=== PATIENT | male | born 1945 | race Caucasian/White ===

== ENCOUNTER 2023-01-17 19:20 | Inpatient (IN) | payer OTHER ==
[~2023-01-17] VITALS: Ht 175.3 cm; Wt 77.6 kg
--- NOTE | 2023-01-17 19:25 | NUR ---
Patient to ER bed 07 to gown for evaluation. Side rails up. Report given to FARIDEH PALMA.
--- NOTE | 2023-01-17 19:28 | NUR ---
DR. NIETO AT BEDSIDE WITH PATIENT FOR MSE.
[2023-01-17] MEDS ORDERED: RACEPINEPHRINE HCL 0.5 ML VIAL.NEB INH ONE ×2 (19:35→19:45)
--- NOTE | 2023-01-17 20:04 | NUR ---
ASSUMED CARE OF PATIENT
[2023-01-17 20:06] LABS: BASOPHILS # (AUTO) 0.1 K/uL (0.0-0.2); BASOPHILS % (AUTO) 1.1 % (0.0-2.0); EOSINOPHILS # (AUTO) 0.5 K/uL (0.0-0.4); EOSINOPHILS % (AUTO) 4.8 % (0.0-4.0); HEMATOCRIT 35.3 % (36-54); HEMOGLOBIN 11.7 g/dL (14.0-18.0); LYMPHOCYTES # (AUTO) 1.5 K/uL (1.0-5.5); LYMPHOCYTES % (AUTO) 14.8 % (20.5-51.5); MEAN CORPUSCULAR HEMOGLOBIN 29 pg (27-31); MEAN CORPUSCULAR HGB CONC 33 % (32-36); MEAN CORPUSCULAR VOLUME 89 fL (79.0-98.0); MONOCYTES # (AUTO) 1.2 K/uL (0.0-1.0); MONOCYTES % (AUTO) 12.4 % (1.7-9.3); NEUTROPHILS # (AUTO) 6.7 K/uL (1.8-7.7); NEUTROPHILS % (AUTO) 66.9 % (40.0-70.0); PLATELET COUNT (AUTO) 342 K/uL (130-430); RED BLOOD CELL COUNT(AUTO) 3.99 MIL/uL (4.2-6.2); RED CELL DISTRIBUTION WIDTH 14.1 % (9.0-15.0)
--- NOTE | 2023-01-17 20:30 | NUR ---
patient came in with c/o difficulty breathing. patient stated he had a biopsy of a mass in his throat 2 weeks ago. possible large mass obstructing airway. stridor noted. patient sating at 90 on room air. denies chest pain, headache, n/v/d. cap refill >3.
[2023-01-17 20:36] LABS: PROTHROMBIN TIME 10.3 SECS (9.5-12.5)
[2023-01-17 20:42] LABS: ANION GAP 6 (5-15); CHLORIDE 99 mmol/L (98-107); GLUCOSE 90 mg/dL (70-99); UREA NITROGEN, BLOOD 20 mg/dL (8-21)
[2023-01-17 20:49] LABS: ALANINE AMINOTRANSFERASE 15 U/L (12-78); ALBUMIN 3.2 g/dL (3.4-4.8); ASPARTATE AMINOTRANSFERASE 12 U/L (10-37); TOTAL BILIRUBIN 0.4 mg/dL (0.0-1.0)
[2023-01-17] MEDS ORDERED: IPRATROPIUM BROM 0.5 MG/2.5 ML VIAL.NEB (ATROVENT) INH ONE (21:15)
[2023-01-17] MEDS ORDERED: ALBUTEROL SULFATE 0.083% 2.5 MG/3 ML VIAL.NEB INH ONE (21:15)
--- NOTE | 2023-01-17 21:23 | NUR ---
COVID AND FLU SAMPLE COLLECTED AND SENT TO LAB
--- NOTE | 2023-01-17 21:44 | NUR ---
Medication reconciliation completed with information provided by pt at the bedside. Any prior medication reconciliation on file was reviewed and corrected.
[2023-01-17] MEDS ORDERED: LISI-209 PO (21:45)
[2023-01-17] MEDS ORDERED: CARV3.1246 PO (21:45)
[2023-01-17] MEDS ORDERED: ASA81 PO (21:45)
[2023-01-17] MEDS ORDERED: ASPI-1077 PO (21:45)
[2023-01-17] MEDS ORDERED: [UNRECOGNIZED DRUG - CODE] PO (21:45)
[2023-01-17] MEDS ORDERED: FURO-149 PO (21:45)
[2023-01-17] MEDS ORDERED: CYAN100010 PO (21:45)
[2023-01-17] MEDS ORDERED: VITD2000 PO (21:45)
--- NOTE | 2023-01-17 21:45 | NUR ---
Admit bed requested Patient will be admitted to care of . Admitted to TELE unit. Diagnosis STRIDOR,ESOPHAGEAL CANCER Inpatient (Yes or No) YES Observation (Yes or No) NO Orientation concerns or request close to nursing station (Yes or No) NO Covid Status PENDING On vent or bipap NO Isolation requirements NO Needs a sitter NO From Home (Yes or if No enter name of facility) YES Requires Dialysis (Yes or No) NO Med Rec Completed (Yes of No) YES
--- NOTE | 2023-01-17 23:13 | NUR ---
endorsed patient to [facility] por[facility]
--- NOTE | 2023-01-17 23:15 | NUR ---
Received report from outgoing nurse FARIDEH Saez. Received pt awake and alert, no s/s of discomfort noted. Pt on 2L O2 via N/C sating at 96%. Labored breathing noted. Safety measures in place.
--- NOTE | 2023-01-17 23:55 | NUR ---
ADMISSION NOTE Received patient from ER via gurney. Patient admitted with diagnosis of STRIDOR/ESPOHAGEAL CA. Patient is awake, alert, oriented X 4. Patient oriented to hospital room, call light, toileting, pain management and safety-teach back done. Patient informed that their room number is 125A. Personal belongings checked and Belongings List documented. Call light within reach.
[2023-01-18] VITALS (23 sets, daily range): BP systolic 110–161
--- NOTE | 2023-01-18 00:09 | NUR ---
Patient will be admitted to care of Dr Siu. Admitted to Tele unit. Will go to room 125A. Belongings list completed. Complete and up to date summary report printed. SBAR report to be given at bedside with opportunity for questions.
--- NOTE | 2023-01-18 00:22 | NUR ---
PAGED DR COFFEY for orders, waiting callback
--- NOTE | 2023-01-18 00:47 | NUR ---
CONSULTATION PAGED/CALLED Reason for Consultation: SOB Person Who was Notified: DR RAND Consulting Physician: JAQUELINE College Recruiter Specialty: Ordering Physician: ALEXX
--- NOTE | 2023-01-18 01:07 | NUR ---
SPOKE W/ DR KIRKPATRICK pt c/o SOB, noted increased WOB. Placed on 15L NRB with minimal improvement. RT at bedside. Informed Dr Kirkpatrick, new orders received to transfer pt to ICU. Pt is a/o x4 and verbalized he does not want to be intubated. Son at bedside is aware but wants pt to be full code. As of right now, pt is still considered full code until code status documentation is signed Addendum: 01/18/23 at 0227 by Traci Lima RN Also asked Dr Kirkpatrick if he wanted to order an ABG due to increased WOB, refused and stated "what is that going to tell us?"
[2023-01-18] MEDS ORDERED: guaiFENesin 200 MG/CODEINE 20 MG/ 10 ML UDC PO PRN (01:15)
--- NOTE | 2023-01-18 01:35 | NUR ---
TRANSFER PT TRANSFERRED FROM [facility] AT THIS TIME. PT RECEIVED ON COOL AEROSOL MASK 15L/60%,BREATHING IS LABORED. PT AAOX3-4 ABLE TO FOLLOW AND RESPOND TO VERBAL CUES. PT PLACED ON HFNC BY RT AT THIS TIME, 35L/ 50%. WOB HAS DECREASED ON HFNC AND PT STATING HE FEELS MORE COMFORTABLE. PT SR ON MONITOR. NAHUM 22G TO SL, PATENT AND INTACT. PT DENIES ANY PAIN OR DISCOMFORT AT THIS TIME. HOB ELEVATED, BED LOCKED IN LOWEST POSITION, CALL LIGHT IN REACH. WILL CONTINUE TO MONITOR. PT IS AAO AND ABLE TO VERBALIZE NEEDS. PER PT HE DOES NOT WANT TO BE INTUBATED, CHEST COMPRESSIONS, MEDICATIONS, AND BIPAP ARE ACCEPTABLE.
[2023-01-18] MEDS: RACEPINEPHRINE HCL 0.5 ML VIAL.NEB INH SCH ×2 (01:53→07:19)
--- NOTE | 2023-01-18 01:54 | NUR ---
TRANSFER TO ICU Report given to FARIDEH Estes. All belongings sent with pt
--- NOTE | 2023-01-18 03:23 | NUR ---
CONSULTATION PAGED/CALLED Reason for Consultation: esophageal cancer Person Who was Notified: betty Consulting Physician: alysa Bioinformatics Developer Specialty: GI Ordering Physician: rodolfo
--- NOTE | 2023-01-18 03:45 | NUR ---
FAMILY AT BEDSIDE PTS SON GERDA AT BEDSIDE. ALL BELONGINGS SENT HOME WITH FAMILY.
[2023-01-18] MEDS ORDERED: GLIP5TAB26 PO (03:51)
--- NOTE | 2023-01-18 05:00 | NUR ---
HYGIENE PTS LINENS CHANGED AT THIS TIME, PT INDEPENDENT AND ABLE TO TURN ON HIS OWN. PT TOLERATING ACTIVITY WELL. WILL CONTINUE TO MONITOR.
[2023-01-18 05:57] LABS: BASOPHILS # (AUTO) 0.1 K/uL (0.0-0.2); BASOPHILS % (AUTO) 0.8 % (0.0-2.0); EOSINOPHILS # (AUTO) 0.2 K/uL (0.0-0.4); EOSINOPHILS % (AUTO) 1.9 % (0.0-4.0); HEMATOCRIT 37.7 % (36-54); HEMOGLOBIN 12.5 g/dL (14.0-18.0); LYMPHOCYTES # (AUTO) 0.9 K/uL (1.0-5.5); LYMPHOCYTES % (AUTO) 9.5 % (20.5-51.5); MEAN CORPUSCULAR HEMOGLOBIN 29 pg (27-31); MEAN CORPUSCULAR HGB CONC 33 % (32-36); MEAN CORPUSCULAR VOLUME 89 fL (79.0-98.0); MONOCYTES # (AUTO) 0.7 K/uL (0.0-1.0); MONOCYTES % (AUTO) 7.8 % (1.7-9.3); NEUTROPHILS # (AUTO) 7.6 K/uL (1.8-7.7); PLATELET COUNT (AUTO) 337 K/uL (130-430); RED BLOOD CELL COUNT(AUTO) 4.24 MIL/uL (4.2-6.2); RED CELL DISTRIBUTION WIDTH 14.2 % (9.0-15.0); WHITE BLOOD COUNT (AUTO) 9.5 K/uL (4.8-10.8)
[2023-01-18 06:43] LABS: ALANINE AMINOTRANSFERASE 13 U/L (12-78); ALBUMIN 3.1 g/dL (3.4-4.8); ANION GAP 7 (5-15); ASPARTATE AMINOTRANSFERASE 12 U/L (10-37); CALCIUM 9.3 mg/dL (8.4-11.0); CHLORIDE 102 mmol/L (98-107); GLUCOSE 146 mg/dL (70-99); TOTAL BILIRUBIN 0.4 mg/dL (0.0-1.0); UREA NITROGEN, BLOOD 18 mg/dL (8-21)
--- NOTE | 2023-01-18 07:31 | NUR ---
DR. COFFEY SPOKE WITH DR. COFFEY AND MADE MD AWARE THAT PT DOES NOT WANT INTUBATION. PT CODE STATUS UPDATED TO MOD CODE PER MD. OTHER ORDERS RECEIVED. WILL CARRY OUT ORDERED.
--- NOTE | 2023-01-18 07:33 | NUR ---
ENDORSEMENT BEDSIDE REPORT GIVEN TO CIRO GONG USING SBAR APPROACH.
--- NOTE | 2023-01-18 07:43 | NUR ---
DR ISBELL HERE AND TALKED TO PT. SPOKE WITH PT, MD SEEING PT ALSO OUTPT. VERIFIED WITH PT THAT PT DOES NOT WANT G-TUBE. REMINDED PT THAT HIS CANCER MD WILL NO DO CHEMO TREATMENT UNLESS HE GETS PROPER NUTRITION THRU G-TUBE. SAID PT WILL TALK TO FAMILY RE G-TUBE AND IF THEY ARE OK WITH IT THEY CAN DO IT THIS WEEK WHEN BREATHING IS BETTER.
[2023-01-18] MEDS ORDERED: MORPHINE 2 MG/ML INJ. SYRINGE IVP PRN (07:45)
--- NOTE | 2023-01-18 07:51 | NUR ---
DR RAND HERE AND SEEN PT. SPOKE WITH PT.
[2023-01-18] MEDS ORDERED: METHYLPREDNISOLONE SOD SUCC 40 MG/ML VIAL IVP ONE (08:45)
[2023-01-18] MEDS ORDERED: RACEPINEPHRINE HCL 0.5 ML VIAL.NEB INH PRN ×2 (09:15→12:45)
[2023-01-18] MEDS: cefTRIAXone 1 GM in D5W 50 ML IV SCH (09:40)
[2023-01-18] MEDS: CARVEDILOL 3.125 MG TABLET (COREG) PO SCH ×2 (09:43→20:09)
[2023-01-18] MEDS: lisinopriL 5 MG TABLET PO SCH (09:43)
--- NOTE | 2023-01-18 10:26 | NUR ---
DR LYNDA COULTER: SPOKE WITH PT. ALSO SPOKE WITH DR RAND AND DR ISBELL.
--- NOTE | 2023-01-18 11:00 | NUR ---
PT IS MORE RELAXED NOW RESPIRATORY DE [place]. PT IS NOW ON 40% FIO2 VIA HI-FLOW.
[2023-01-18] MEDS: IPRATROPIUM/ALBUTEROL SULFATE 3 ML AMPUL.NEB (DUONEB) INH SCH ×4 (11:39→23:38)
--- NOTE | 2023-01-18 12:00 | NUR ---
PT COMPLAIN THAT THE ENSURE PLUS HIGH PROTEIN MAKES HIM PRODUCE MORE PHLEGM. CALLED DIETARY TO CHECK IF THEY CAN PROVIDE OTHER SUPPLEMENTS WITH NO MILK.
--- NOTE | 2023-01-18 12:45 | NUR ---
Met with FARIDEH Art regarding the patient about a potential hosice eval in the ICU. per nurse, there was discussion of hospice by the GI as the patient is followed outpatient by his GI dr. and was refusing G-Tube placement. Now, the patient has become in agreement to possible G-Tube placement. At this time, the dr.s will discuss the best course of action and discuss with patient about his final decision. At this time, there is no follow up needed from addiction social worker.
--- NOTE | 2023-01-18 14:32 | NUR ---
DR STRANGE CONSULTATION CALLED IN: BY THIS RN REASON : ESOPHAGEAL CA SPOKE WITH : ADOLPH
--- NOTE | 2023-01-18 15:27 | NUR ---
PT IN BED RELAXED. FAMILY AT BEDSIDE. PT SAT WNL AT 35% FIO2 HI-FLOW.
--- NOTE | 2023-01-18 17:00 | NUR ---
PT CONTINUE TO HAVE COUGHING EPISODE WITH GREENISH/BROWNISH SPUTUM. PT'S O2 SAT WNL AT 35% FIO2 HI-FLOW.
--- NOTE | 2023-01-18 17:31 | NUR ---
PT'S FAMILY AT BEDSIDE.
--- NOTE | 2023-01-18 18:21 | NUR ---
PT IS FULL CODE: SPOKE WITH PT RE CODE STATUS, PT SAID OKAY TO DO EVERYTHING.
--- NOTE | 2023-01-18 19:00 | NUR ---
Opening notes Received report from endorsing morning shift RN for continuity of care. Patient is sitting in bed with legs dangling. Patient is AAOX4. Patient's vital signs blood pressure 114/68, heart rate 77, respirations 19, and SPO2 97% on high-flow nasal cannula 30L FIO2 35%. Patient uses urinal. Bed is locked and in lowest position, call light button within reach, fall and safety precautions is in place.
--- NOTE | 2023-01-18 19:07 | NUR ---
PT'S BEDSIDE TELEMONITOR NOT WORKING, INFORMED BALL SHAGGER CHUNG. PT ON STABLE CONDITION.
--- NOTE | 2023-01-18 19:13 | NUR ---
ENDORSED TO NIGHT RN. PT ON STABLE CONDITION.
[2023-01-18] MEDS: METHYLPREDNISOLONE SOD SUCC 40 MG/ML VIAL IVP SCH (20:08)
--- NOTE | 2023-01-18 20:29 | NUR ---
Insurance Christopher from [employer] called regarding patient transfering to a higher level of care. Christopher said to send latest progress note and discharge planning to them. Fax # [phone].
--- NOTE | 2023-01-18 21:00 | NUR ---
Transfer Transferred patient to . 101A. Gave report to Traci. Vital signs are all within limits. All belongings is given to the patient and placed at the bedside.
--- NOTE | 2023-01-18 21:40 | NUR ---
RECEIVED PATIENT IN BED, AWAKE, ALERT. ON HFNC 30 L/35% FIO2. HOAXING VOICE. VS TAKEN , NO DISTRESS. INITIAL ASSESSMENT DONE. FAMILY AT BEDSIDE AND VERY SUPPORTIVE. NO C/O PAIN AT THIS TIME. ORIENTED PATIENT TO UNIT. CALL LIGHT WITHIN REACH. INSTRUCTED PATIENT TO CALL FOR INSTALL TECHNICIAN.
[2023-01-19] VITALS: BP_SYST 118
[2023-01-19] MEDS: IPRATROPIUM/ALBUTEROL SULFATE 3 ML AMPUL.NEB (DUONEB) INH SCH ×6 (03:00→23:08)
--- NOTE | 2023-01-19 05:49 | NUR ---
PATIENT IS SLEEPING AT THIS TIME. TOLERATE HIGH FLOW AT THIS TIME. NO DISTRESS NOTED.
[2023-01-19] MEDS: METHYLPREDNISOLONE SOD SUCC 40 MG/ML VIAL IVP SCH ×2 (08:55→21:01)
[2023-01-19] MEDS: lisinopriL 5 MG TABLET PO SCH (08:56)
[2023-01-19] MEDS: cefTRIAXone 1 GM in D5W 50 ML IV SCH (08:57)
[2023-01-19] MEDS: CARVEDILOL 3.125 MG TABLET (COREG) PO SCH ×2 (08:57→20:57)
--- NOTE | 2023-01-19 11:15 | NUR ---
RT NOTE: 1115 Patient placed on 4LPM nasal cannula with humidifier. SpO2 100%, RR 20, HR 66. Tolerating change well. FARIDEH Chaudhary made aware of change. JENA on standby. Addendum: 01/19/23 at 1130 by Makenna Del Rio RT Amended: Links added.
[2023-01-19 11:23] VITALS: BP_SYST 130
[2023-01-19] MEDS: SIMETHICONE 80 MG TAB.CHEW PO PRN (12:50)
[2023-01-19 15:20] VITALS: BP_SYST 129
--- NOTE | 2023-01-19 15:27 | NUR ---
RT NOTE: 1527 Patient placed on HFNC post tx per patient's request. Tolerating well. No resp distress noted. Addendum: 01/19/23 at 1533 by Makenna Del Rio RT Amended: Links added.
--- NOTE | 2023-01-19 19:00 | NUR ---
pt A/Ox4,vss,resting in bed,on O2 Hi flow,no acute respiratory distress noted pt infomred and agreed for oncoming CT chest,abdomen and pelvis with contrast consent signed for contrast,needs attended,call light and personal items within pt reach safety maintained.continue to monitor pt.
[2023-01-19 22:30] VITALS: BP_SYST 152
[2023-01-19 22:44] VITALS: BP_SYST 152
[2023-01-20 02:02] VITALS: BP_SYST 147
[2023-01-20] MEDS: IPRATROPIUM/ALBUTEROL SULFATE 3 ML AMPUL.NEB (DUONEB) INH SCH ×6 (03:00→23:20)
--- NOTE | 2023-01-20 07:05 | NUR ---
CLOSING NOTES PT IS RESTING NOW.
[2023-01-20 07:35] VITALS: BP_SYST 131
--- NOTE | 2023-01-20 07:35 | NUR ---
Opening Notes Opening Notes Patient laying in bed, resting having a breathing treatment. A/O x 4, Albanian speaking. Patient is on HFNC 30L Fi02 . Patient is having pain level 8 (RN notified), no distress. Patient is on a full liquid diet. Patient has NAHUM 22g SL. Patient has BRP. Bed is locked in lowest position. Call light within reach, all needs met, will continue with plan of care.
[2023-01-20] MEDS: lisinopriL 5 MG TABLET PO SCH (08:15)
[2023-01-20] MEDS: CARVEDILOL 3.125 MG TABLET (COREG) PO SCH ×2 (08:18→21:08)
[2023-01-20] MEDS: METHYLPREDNISOLONE SOD SUCC 40 MG/ML VIAL IVP SCH ×2 (09:11→21:08)
[2023-01-20] MEDS: cefTRIAXone 1 GM in D5W 50 ML IV SCH (09:13)
--- NOTE | 2023-01-20 10:08 | NUR ---
MD HOWELL AT BEDSIDE at bedside and gave new medications orders. Orders carried out.
[2023-01-20 11:26] VITALS: BP_SYST 126
--- NOTE | 2023-01-20 12:30 | NUR ---
Noon Notes Patient laying in bed, resting while watching TV. Patient is on HFNC 30L Fi02 . No pain, no distress. Bed is locked in lowest position. Call light within reach, all needs met, will continue with plan of care.
[2023-01-20] MEDS ORDERED: COR3.125 PO (13:54)
[2023-01-20] MEDS ORDERED: METH40VI46 IVP (13:54)
[2023-01-20] MEDS ORDERED: SUCR1ORA4 GT (13:54)
--- NOTE | 2023-01-20 15:09 | NUR ---
Rosa Maria from [employer] gave the following information for transfer to [facility] Address: [address] [place] [address], [address] going to 80th floor Rm 8306 tel # to give report - [phone] ADMITTING MD: DR TROY RSI AMBULANCE PEN RULER OPERATOR TIME IS 1900 TEl # [phone] SHOULD THERE BE A PROBLEM PLS CALL [employer]: [phone]
[2023-01-20 15:22] VITALS: BP_SYST 140
--- NOTE | 2023-01-20 15:29 | NUR ---
Notes Spoke with patients son regarding him being transferred out [facility] hospital today at 1900.
[2023-01-20 16:19] VITALS: BP_SYST 140
--- NOTE | 2023-01-20 16:40 | NUR ---
Medication Spoke to to pharmacy regarding patients medication because it states in the belongings that medication will be given to pharmacy and [facility] pharmacist and he told me that there is no meds there. Spoke to Pj (son) and he let me know that they took all of his home medication home when he was admitted to the hospital.
[2023-01-20] MEDS ORDERED: DEC4 PO (16:57)
[2023-01-20] MEDS ORDERED: SUCRALFATE 1 GM/10 ML UDC GT SCH (17:00)
[2023-01-20] MEDS: traMADol HCL HCL 50 MG TABLET (ULTRAM) PO PRN ×2 (17:19→21:23)
--- NOTE | 2023-01-20 18:59 | NUR ---
Closing Notes Patient laying in bed, resting watching TV. A/O x 4, Hebrew speaking. Patient is on HFNC 30LPM 35% Fi02 . No pain, no distress. Patient is on a full liquid diet. Patient has NAHUM 22g SL. Patient has BRP. Bed is locked in lowest position. Call light within reach, all needs met, will endorse to shift boss nurse.
[2023-01-20 19:30] VITALS: BP_SYST 115
[2023-01-20] MEDS: SIMETHICONE 80 MG TAB.CHEW PO PRN (21:09)
--- NOTE | 2023-01-20 23:50 | NUR ---
.D/C Patient Patient given medication reconciliation form and D/C instructions. Exit Care provided. Patient verbalized understanding. discussed with patient the results and treatment provided. Ambulatory BEING TRANSFERRED VIA GURNEY BY [facility] BLOOD AND PLASMA LABORATORY ASSISTANT. Patient in stable condition, ID band removed. IV catheter removed STERILE LOCKED AND SECURED PER REQUEST FROM ACCEPTING FACILITY. Rx of PATIENT given. Patient educated on pain management. All belongings sent with patient. PATIENT IS BEING TRANSFERRED BY [facility] TO [facility], THEIR CHARGE NURSE CHRISTIANO HAS BEEN NOTIFIED THAT THE PATIENT IS NOW ON HIS WAY. VOICEMAIL LEFT FOR TRANSFER [employer]IVESTOCK INSPECTORIRMA CORTES (PER HER REQUEST) TO MAKE THEM AWARE PATIENT IS NOW ON THEIR WAY
== END 2023-01-20 23:50 | disposition short-term general hospital (02) | DRG 374 ==
LOC: SED 19:20 → STU 21:23 → SIC 01-18 01:35 → STU 01-18 20:32 → SMU 01-20 11:58
PROVIDERS: ADMIT Internal Medicine; ATTEND Internal Medicine
PROC: 5A0935A Assistance with Respiratory Ventilation, Less than 24 Consecutive Hours, High Flow/Velocity Cannula (ICD-10-PCS; principal; 2023-01-18)
PROC: 5A0935A Assistance with Respiratory Ventilation, Less than 24 Consecutive Hours, High Flow/Velocity Cannula (ICD-10-PCS; 2023-01-20)
DX: C15.3 Malignant neoplasm of upper third of esophagus (principal); J96.00 Acute respiratory failure, unspecified whether with hypoxia or hypercapnia; E11.9 Type 2 diabetes mellitus without complications; J44.9 Chronic obstructive pulmonary disease, unspecified; N40.0 Benign prostatic hyperplasia without lower urinary tract symptoms; I25.10 Atherosclerotic heart disease of native coronary artery without angina pectoris; J39.8 Other specified diseases of upper respiratory tract; Z20.822 Contact with and (suspected) exposure to COVID-19; R13.10 Dysphagia, unspecified; Z85.01 Personal history of malignant neoplasm of esophagus; Z87.891 Personal history of nicotine dependence; Z79.82 Long term (current) use of aspirin; Z79.899 Other long term (current) drug therapy; Z95.1 Presence of aortocoronary bypass graft
CPT/HCPCS: 36415; 36600; 70490; 71045; 71250-TC; 71260-TC; 76376; 80053; 82803-TC; 83605; 83880; 84484; 85025; 85610-TC; 85730-TC; 87081; 93005; 94640; 94760; 99285; G0378; J0696; J1030; J2270; J7060; J7613; Q9967

== ENCOUNTER 2023-02-02 16:00 | Inpatient (IN) | payer OTHER ==
[~2023-02-02] VITALS: Ht 175.3 cm; Wt 69.9 kg
[~2023-02-02 16:00] MED LIST: ASA81 PO; ASPI-1077 PO; CARV3.1246 PO; COR3.125 PO; CYAN100010 PO; DEC4 PO; FURO-149 PO; GLIP5TAB26 PO; LISI-209 PO; METH40VI46 IVP; SUCR1ORA4 GT; VITD2000 PO; [UNRECOGNIZED DRUG - CODE] PO
--- NOTE | 2023-02-02 23:00 | NUR ---
ADMISSION NOTE Received patient from [facility] via gurney. Patient admitted with diagnosis of Dysphagia/ Esophageal Narrowing. Patient is awake, alert, oriented X 4. Patient oriented to hospital room, call light, toileting, pain management and safety-teach back done. Personal belongings checked and Belongings List documented. Call light within reach.
--- NOTE | 2023-02-02 23:30 | NUR ---
Paged Dr. Siu, awaiting callback.
[2023-02-03] MEDS ORDERED: HYDROmorphone 1 MG/ML INJ. CARTRIDGE IVP PRN (00:15)
[2023-02-03] MEDS ORDERED: DEXTROSE 50% JECT 50 ML DISP.SYRIN IVP PRN (00:15)
[2023-02-03] MEDS ORDERED: *TPN PER PHARMACY XX PRN (00:15)
--- NOTE | 2023-02-03 00:15 | NUR ---
Spoke with Dr. Boston about patient. Orders received.
--- NOTE | 2023-02-03 01:00 | NUR ---
Received call back from Dr. Siu, updated him on patient's status and that we received orders from Dr. Boston. Dr. Siu gave order for ID consult.
[2023-02-03] MEDS: D5/0.45 NS 1,000 ML IV SCH ×2 (01:42→22:28)
[2023-02-03 02:52] VITALS: BP_SYST 137
--- NOTE | 2023-02-03 02:56 | NUR ---
CONSULTATION PAGED/CALLED Reason for Consultation: COPD/TRACHEAL STENT Person Who was Notified: AUDI Consulting Physician: SAMANTHA Roll Out Manager Specialty: PULMO Ordering Physician: LYNDA
[2023-02-03] MEDS ORDERED: HEPA500015 SUBCUT (02:57)
[2023-02-03] MEDS ORDERED: ACETYLCYSTEINE 10% HHN (02:57)
[2023-02-03] MEDS ORDERED: INSU100V53 SUBCUT (02:57)
[2023-02-03] MEDS ORDERED: IPRATROPIUM HHN (02:57)
[2023-02-03] MEDS ORDERED: SODI4VIA HHN (02:57)
[2023-02-03] MEDS ORDERED: ALBU2.5V7 INH (02:57)
[2023-02-03] MEDS ORDERED: HYDR1SYR7 IV (02:57)
[2023-02-03] MEDS ORDERED: [UNRECOGNIZED DRUG - REMARK] (03:04)
[2023-02-03] MEDS ORDERED: SSNOVOLOG SUBCUT (03:04)
[2023-02-03] MEDS ORDERED: AMPI3VIA27 IV (03:04)
[2023-02-03] MEDS ORDERED: Pepcid IV (03:04)
[2023-02-03] MEDS ORDERED: zofran IV (03:04)
--- NOTE | 2023-02-03 03:45 | NUR ---
CONSULTATION PAGED/CALLED Reason for Consultation: ASPIRATION/PNA Person Who was Notified: FIONA Consulting Physician: VANNA Carbonizer Specialty: ID Ordering Physician: ALEXX
--- NOTE | 2023-02-03 04:24 | NUR ---
CONSULTATION PAGED/CALLED Reason for Consultation: DYSPHAGIA Person Who was Notified: FIONA Consulting Physician: AKILAH Acute Care Nurse Specialty: GI Ordering Physician: LYNDA
[2023-02-03 04:36] VITALS: BP_SYST 115
--- NOTE | 2023-02-03 06:01 | NUR ---
CONSULTATION PAGED/CALLED Reason for Consultation: ESOPHAGEAL CANCER Person Who was Notified: BENY Consulting Physician: ALEXANDR Solder Making Laborer Specialty: HEMO Ordering Physician: LYNDA
[2023-02-03 06:15] LABS: BASOPHILS # (AUTO) 0.1 K/uL (0.0-0.2); BASOPHILS % (AUTO) 0.6 % (0.0-2.0); EOSINOPHILS # (AUTO) 0.3 K/uL (0.0-0.4); EOSINOPHILS % (AUTO) 2.3 % (0.0-4.0); HEMOGLOBIN 11.6 g/dL (14.0-18.0); LYMPHOCYTES # (AUTO) 0.8 K/uL (1.0-5.5); LYMPHOCYTES % (AUTO) 6.3 % (20.5-51.5); MEAN CORPUSCULAR HEMOGLOBIN 29 pg (27-31); MEAN CORPUSCULAR HGB CONC 32 % (32-36); MEAN CORPUSCULAR VOLUME 89 fL (79.0-98.0); MONOCYTES # (AUTO) 0.9 K/uL (0.0-1.0); MONOCYTES % (AUTO) 7.2 % (1.7-9.3); NEUTROPHILS # (AUTO) 10.4 K/uL (1.8-7.7); NEUTROPHILS % (AUTO) 83.6 % (40.0-70.0); PLATELET COUNT (AUTO) 213 K/uL (130-430); RED BLOOD CELL COUNT(AUTO) 4.02 MIL/uL (4.2-6.2); RED CELL DISTRIBUTION WIDTH 14.2 % (9.0-15.0); WHITE BLOOD COUNT (AUTO) 12.4 K/uL (4.8-10.8)
[2023-02-03] MEDS ORDERED: AMPICILLIN SODIUM/SULBACTAM NA 3 GM VIAL ONE (06:32)
[2023-02-03 06:55] LABS: ANION GAP 8 (5-15); CALCIUM 9.9 mg/dL (8.4-11.0); CHLORIDE 109 mmol/L (98-107); CREATININE 0.73 mg/dL (0.55-1.30); GLUCOSE 133 mg/dL (70-99); UREA NITROGEN, BLOOD 18 mg/dL (8-21)
[2023-02-03] MEDS: AMPICILLIN SODIUM/SULBACTAM NA 3 GM in NS 100 ML IV SCH ×3 (07:02→18:17)
--- NOTE | 2023-02-03 07:10 | NUR ---
Dr. Souza saw patient at bedside and spoke to him about the option of G-tube placement.
--- NOTE | 2023-02-03 07:45 | NUR ---
CLOSING Patient resting in bed, unlabored breathing on 2L NC. Given Dilaudid PRN for report of pain in chest when coughing. Wound care done, photos placed in chart. Strict NPO. Suction at bedside. Call light in reach, bed low and locked, exit alarm on.
[2023-02-03 08:00] VITALS: BP_SYST 124
[2023-02-03] MEDS ORDERED: ZOFRAN 4 MG IV PRN (10:00)
[2023-02-03] MEDS ORDERED: IPRATROPIUM BROM 0.5 MG/2.5 ML VIAL.NEB (ATROVENT) INH PRN (10:00)
--- NOTE | 2023-02-03 10:30 | NUR ---
CONSULTATION PAGED/CALLED Reason for Consultation: [] SURGICAL PEG PLACEMENT Person Who was Notified: [] CYNDEE Consulting Physician: [] ANNI HUIZAR Optical Lens Manufacturing Tech Specialty: [] GEN SURGEON Ordering Physician: [] DR MCGUIRE
[2023-02-03] MEDS ORDERED: ACETYLCYSTEINE HHN SCH (11:00)
[2023-02-03] MEDS ORDERED: IPRATROPIUM 0.5 MG HHN SCH (11:00)
--- NOTE | 2023-02-03 11:17 | NUR ---
Dietitian Recommendations * Advance to clear liquid diet, if pt is not aspirating or vomiting per GI Note * RN- please hydrate pt's lips q4h * If pt agrees to surgical GT (best to use EN over TPN to maintain gut integrity) --Jevity 1.5 @ 60mL/hr (goal) via GT Provides: 2160 kcal, 92g PRO, 1094 mL free water * TPN recommendation --D40, AA10% @ 90mL/hr & 20%ILE @ 5mL/hr via central line Provides: 2141 kcal, 108 g PRO, total volume:2280mL; GIR: 4.3 mg/kg/min Meets: 102 % of lower est kcal, 103% of lower est PRO, 109% of lower est fluid needs GS, MPH, RD Please refer to RD Assessment for further details. Thanks! Addendum: 02/03/23 at [address] Amended: Links added.
--- NOTE | 2023-02-03 11:46 | NUR ---
PT SITTING IN BED SAYING WANTED TOGO HOME. REASSURANCE /REORIENTATION PROVIDED.EXPLAINED PT THAT PT IS IN HOSPITAL PT WILL BE MOVE TO CLOSE TO STATION .DUE ANTIBIOTIC GIVEN ORDERED
--- NOTE | 2023-02-03 12:00 | NUR ---
LATE ENTRY DUE TO CARE 0800-RECEIVED PT IN BED. A/O X3. DENIES C/O OF PAIN OR SOB .VITALS STABLE.IVF INFUSING WELL.SAFETY AND FALL PRECAUTIONS IN PLACE. ORAL SUCTION DONE NEEDED .PT IS NPO. KEPT COMFORTABLE.
[2023-02-03 12:13] VITALS: BP_SYST 141
[2023-02-03] MEDS ORDERED: HEPARIN SODIUM,PORCINE 5,000 UNITS/ML VIAL SUBCUT SCH (14:00)
--- NOTE | 2023-02-03 15:30 | NUR ---
PT STABLE NOT IN ACUTE DISTRESS SEEN BY DR DAHL
[2023-02-03] MEDS ORDERED: ONDANSETRON HCL 4 MG/2 ML VIAL IVP PRN (15:45)
[2023-02-03] MEDS: FLUCONAZOLE 200 mg/ NS 100 ML IV SCH (16:47)
[2023-02-03 17:02] VITALS: BP_SYST 129
[2023-02-03] MEDS ORDERED: HYDROcodone/ACETAMIN 5-325 MG TAB (NORCO/ VICODIN) PO PRN (17:15)
[2023-02-03] MEDS ORDERED: HYDROcodone/ACETAMIN 10-325 MG TAB PO PRN (17:15)
[2023-02-03] MEDS: ACETYLCYSTEINE 10% 4 ML VIAL (RT) INH SCH (19:38)
[2023-02-03] MEDS: IPRATROPIUM BROM 0.5 MG/2.5 ML VIAL.NEB (ATROVENT) INH SCH (19:47)
[2023-02-03] MEDS: SODIUM CL 0.9% INH SCH (19:47)
[2023-02-03 20:00] VITALS: BP_SYST 159
[2023-02-03] MEDS ORDERED: [UNRECOGNIZED DRUG - OTHER] IV SCH ×9 (21:00)
[2023-02-03] MEDS ORDERED: SODIUM CHLORIDE FOR INHALATION HHN SCH (21:00)
[2023-02-03] MEDS ORDERED: POTASSIUM CHLORIDE IV SCH ×9 (21:00)
[2023-02-03] MEDS ORDERED: [UNRECOGNIZED DRUG - OTHER] HHN SCH (21:00)
[2023-02-03] MEDS ORDERED: SODIUM ACETATE IV SCH ×9 (21:00)
[2023-02-03] MEDS ORDERED: K PHOS IV SCH ×9 (21:00)
[2023-02-03] MEDS ORDERED: TPN CENTRAL IV SCH ×9 (21:00)
[2023-02-03 23:32] LABS: INR 1.1 (0.80-1.20); PROTHROMBIN TIME 11.1 SECS (9.5-12.5)
[2023-02-04] MEDS: IPRATROPIUM BROM 0.5 MG/2.5 ML VIAL.NEB (ATROVENT) INH SCH ×7 (00:22→23:25)
[2023-02-04] MEDS: ACETYLCYSTEINE 10% 4 ML VIAL (RT) INH SCH ×7 (00:23→23:26)
[2023-02-04] MEDS: ALBUTEROL SULFATE 0.083% 2.5 MG/3 ML VIAL.NEB INH PRN ×4 (00:23→23:25)
[2023-02-04] MEDS: FAT EMULSIONS 250 ML IV SCH ×2 (00:23→23:11)
[2023-02-04 00:26] VITALS: BP_SYST 140
--- NOTE | 2023-02-04 00:35 | NUR ---
This customs entry writer spoke with Salbador. Mr Everardo (NPO) states that he has abdominal pain. that he rates as 08/09. New order for PRN IV Tylenol as well IV morphine
[2023-02-04] MEDS ORDERED: ACETAMINOPHEN I.V. 1000 MG 100 ML IV PRN (00:45)
[2023-02-04] MEDS ORDERED: NALOXONE HCL 0.4 MG/ML AMP (NARCAN) IVP PRN (00:45)
[2023-02-04] MEDS: AMPICILLIN SODIUM/SULBACTAM NA 3 GM in NS 100 ML IV SCH ×4 (00:54→18:00)
[2023-02-04] MEDS: HEPARIN SODIUM,PORCINE 5,000 UNITS/ML VIAL SUBCUT SCH ×4 (01:05→23:10)
[2023-02-04] MEDS: MORPHINE 2 MG/ML INJ. SYRINGE IVP PRN (01:09)
--- NOTE | 2023-02-04 06:45 | NUR ---
Mr Mcgee has been assesses as indicated. He has been successfully treated for abdominal pain x1 this shift. TPN and LIPIDS have been started this shift. No order for surgical consent has been received thus far. Staff anticipated possible PEG placement orders. PICC line dressing is CDI. he does experience intermittent inspiratory wheezes that can be clearly heard at a distance, He does experience SOB with exertion. He is presently resting quietly
[2023-02-04 07:21] LABS: BASOPHILS # (AUTO) 0.1 K/uL (0.0-0.2); BASOPHILS % (AUTO) 0.5 % (0.0-2.0); EOSINOPHILS # (AUTO) 0.3 K/uL (0.0-0.4); EOSINOPHILS % (AUTO) 2.5 % (0.0-4.0); HEMATOCRIT 35.6 % (36-54); HEMOGLOBIN 11.7 g/dL (14.0-18.0); LYMPHOCYTES # (AUTO) 0.7 K/uL (1.0-5.5); LYMPHOCYTES % (AUTO) 6.9 % (20.5-51.5); MEAN CORPUSCULAR HEMOGLOBIN 30 pg (27-31); MEAN CORPUSCULAR HGB CONC 33 % (32-36); MEAN CORPUSCULAR VOLUME 90 fL (79.0-98.0); MONOCYTES # (AUTO) 0.8 K/uL (0.0-1.0); MONOCYTES % (AUTO) 7.4 % (1.7-9.3); NEUTROPHILS # (AUTO) 8.9 K/uL (1.8-7.7); NEUTROPHILS % (AUTO) 82.7 % (40.0-70.0); PLATELET COUNT (AUTO) 207 K/uL (130-430); RED BLOOD CELL COUNT(AUTO) 3.94 MIL/uL (4.2-6.2); RED CELL DISTRIBUTION WIDTH 14.4 % (9.0-15.0); WHITE BLOOD COUNT (AUTO) 10.8 K/uL (4.8-10.8)
--- NOTE | 2023-02-04 07:30 | NUR ---
Handoff has been given to Neena
[2023-02-04] MEDS: SODIUM CL 0.9% INH SCH ×2 (07:31→23:32)
[2023-02-04 07:33] LABS: ALANINE AMINOTRANSFERASE 18 U/L (12-78); ALBUMIN 1.9 g/dL (3.4-4.8); ANION GAP 6 (5-15); ASPARTATE AMINOTRANSFERASE 7 U/L (10-37); CALCIUM 9.7 mg/dL (8.4-11.0); CHLORIDE 107 mmol/L (98-107); CREATININE 0.85 mg/dL (0.55-1.30); GLUCOSE 287 mg/dL (70-99); PHOSPHORUS 2.8 mg/dL (2.7-4.5); TOTAL BILIRUBIN 1.8 mg/dL (0.0-1.0); UREA NITROGEN, BLOOD 17 mg/dL (8-21)
[2023-02-04 08:00] VITALS: BP_SYST 142
[2023-02-04] MEDS ORDERED: PEPCID 20 MG IV SCH (09:00)
[2023-02-04] MEDS: FAMOTIDINE PF 20 MG/2 ML VIAL IVP SCH (09:05)
[2023-02-04] MEDS: INSULIN GLARGINE 100 UNITS/ML, 10 ML VIAL SUBCUT SCH (09:06)
[2023-02-04 12:53] VITALS: BP_SYST 142
--- NOTE | 2023-02-04 13:36 | NUR ---
Head Of Sales Promotion re: POC Telephone call made to Kalee at [facility] Addendum: 02/04/23 at 1354 by Lianne LEUNG Head Of Sales Promotion re: POC Telephone call made to Estela LOCKHART, at [facility] regarding the plan of care for the patient. I left a message requesting her return phone call. I also called and spoke with Dr. Boston to discuss the patient. I inquired about a discussion regarding palliative and hospice care with the patient and family. Per Dr. Boston, the patient and family are looking to pursue treatment therefore a discussion of palliative and hospice care is not being encouraged at this time. The states the family was approached previously about palliative and hospice care, however they were not interested. At this time, there has been no discussion held with the patient or family about palliative and hospice care services from neonatal social worker. Upon receiving a consult, further discussion will be held.
[2023-02-04] MEDS: FLUCONAZOLE 200 mg/ NS 100 ML IV SCH (16:14)
[2023-02-04 16:34] VITALS: BP_SYST 144
--- NOTE | 2023-02-04 18:00 | NUR ---
pt A/Ox4,on O2 2L/NC,sat 99%,clear liquid diet poor appetite, TPN continue infusing 42 cc per hr,and lipids runs 5cc per hr via picc line in left upper arm,needs attended,call light & personal items within pt reach,blood sugar up to 248 mg/dl at 12 noon, called and notified,d/c IVF D51/2 NS per order.pt for transfer to tertiary [facility] per order.marc mojica called and notified continue to monitor pt.
[2023-02-04 20:00] VITALS: BP_SYST 128
[2023-02-04] MEDS ORDERED: SODIUM ACETATE IV SCH ×9 (21:00)
[2023-02-04] MEDS ORDERED: TPN CENTRAL IV SCH ×9 (21:00)
[2023-02-04] MEDS ORDERED: POTASSIUM CHLORIDE IV SCH ×9 (21:00)
[2023-02-04] MEDS ORDERED: [UNRECOGNIZED DRUG - OTHER] IV SCH ×9 (21:00)
[2023-02-04] MEDS ORDERED: K PHOS IV SCH ×9 (21:00)
[2023-02-05] MEDS: AMPICILLIN SODIUM/SULBACTAM NA 3 GM in NS 100 ML IV SCH ×4 (00:02→18:07)
[2023-02-05] MEDS: LORazepam 2 MG/ML VIAL IVP PRN (03:25)
[2023-02-05 04:00] VITALS: BP_SYST 122
[2023-02-05] MEDS: HEPARIN SODIUM,PORCINE 5,000 UNITS/ML VIAL SUBCUT SCH ×3 (06:00→22:24)
--- NOTE | 2023-02-05 06:05 | NUR ---
Mr Mcgee has becom agitated he is experiencing a significant level of dyspnea. Respiratory has been called and a nebulizer has been given. He is kicking and striking staff. He is pulling IV tubing and trying to snap it. He is removing his oxygen and staff has to actively hold the mask in place for his breathing treatment. Staff has had to restrain him at this time . due to his physical aggression, attempts to get out of bed as well as pulling on medical equipment.
--- NOTE | 2023-02-05 06:45 | NUR ---
Mr Mcgee has been assessed as indicted. He has been noted to be confused. This is in great contrast to the previous nights' mental status. At that time he was alert and oriented. However this shift he has been confused. with several attempts to stand or walk. 2 staff members did assist him stand. This required maximum efforts. Lungs sounds are rhonchus with a persistent moist productive cough. He has required restraints at this time. To decrease activity and thus dyspnea. With any stimulation he attempts to get out of bed. Call to MD pending call back
--- NOTE | 2023-02-05 06:45 | NUR ---
attempted to remove restraints. Mr Mcgee fell asleep. As soon as he was able to move arms he attempted to get out of bed. Restraints reapplied
--- NOTE | 2023-02-05 07:15 | NUR ---
Handoff has been given Neena
[2023-02-05] MEDS: ACETYLCYSTEINE 10% 4 ML VIAL (RT) INH SCH ×5 (07:20→23:26)
--- NOTE | 2023-02-05 07:20 | NUR ---
Dr Conde provides order for bilat soft wrist restraints
[2023-02-05] MEDS: IPRATROPIUM BROM 0.5 MG/2.5 ML VIAL.NEB (ATROVENT) INH SCH ×5 (07:21→23:26)
[2023-02-05] MEDS: SODIUM CL 0.9% INH SCH ×2 (07:22→19:00)
--- NOTE | 2023-02-05 07:55 | NUR ---
Pj ([phone])Mr Mcgee's son was made aware that Mr Mcgee has been restrained this morning. He expressed that he under stood the situation. He did request that he be placed in contact with the surgeon regarding his fathers case
[2023-02-05 08:00] VITALS: BP_SYST 168
[2023-02-05 08:46] LABS: ERYTHROCYTE SEDIMENTATION RATE 45 MM/HR (0-15)
[2023-02-05 08:50] LABS: BASOPHILS # (AUTO) 0.1 K/uL (0.0-0.2); BASOPHILS % (AUTO) 0.6 % (0.0-2.0); EOSINOPHILS # (AUTO) 0.3 K/uL (0.0-0.4); EOSINOPHILS % (AUTO) 2.5 % (0.0-4.0); HEMATOCRIT 34.5 % (36-54); LYMPHOCYTES # (AUTO) 0.7 K/uL (1.0-5.5); LYMPHOCYTES % (AUTO) 6.4 % (20.5-51.5); MEAN CORPUSCULAR HEMOGLOBIN 29 pg (27-31); MEAN CORPUSCULAR HGB CONC 32 % (32-36); MEAN CORPUSCULAR VOLUME 89 fL (79.0-98.0); MONOCYTES # (AUTO) 0.6 K/uL (0.0-1.0); MONOCYTES % (AUTO) 5.4 % (1.7-9.3); NEUTROPHILS # (AUTO) 9.7 K/uL (1.8-7.7); NEUTROPHILS % (AUTO) 85.1 % (40.0-70.0); RED BLOOD CELL COUNT(AUTO) 3.86 MIL/uL (4.2-6.2); RED CELL DISTRIBUTION WIDTH 14.7 % (9.0-15.0); WHITE BLOOD COUNT (AUTO) 11.3 K/uL (4.8-10.8)
[2023-02-05 09:03] LABS: ALANINE AMINOTRANSFERASE 20 U/L (12-78); ALBUMIN 1.9 g/dL (3.4-4.8); ANION GAP 5 (5-15); ASPARTATE AMINOTRANSFERASE 26 U/L (10-37); C-REACTIVE PROTEIN QUANT 6.8 mg/dL (0-0.5); CHLORIDE 106 mmol/L (98-107); GLUCOSE 263 mg/dL (70-99); PHOSPHORUS 2.5 mg/dL (2.7-4.5); TOTAL BILIRUBIN 1.3 mg/dL (0.0-1.0); UREA NITROGEN, BLOOD 11 mg/dL (8-21)
[2023-02-05 10:26] LABS: PLATELET COUNT (AUTO) 207 K/uL (130-430)
[2023-02-05] MEDS: FAMOTIDINE PF 20 MG/2 ML VIAL IVP SCH (10:31)
[2023-02-05] MEDS: INSULIN GLARGINE 100 UNITS/ML, 10 ML VIAL SUBCUT SCH (10:32)
[2023-02-05 11:30] VITALS: BP_SYST 147
[2023-02-05] MEDS: MORPHINE 2 MG/ML INJ. SYRINGE IVP PRN (15:07)
[2023-02-05 15:18] VITALS: BP_SYST 147
[2023-02-05] MEDS: FLUCONAZOLE 200 mg/ NS 100 ML IV SCH (17:07)
--- NOTE | 2023-02-05 18:00 | NUR ---
pt awake confused,on 4L/NC,sat 93%,wheezing and SOB at times keep HOB up 30 degrees,aspiration precaution maintained,HHN treatment given per RT,agitated,restless,tried to climb out of bed,high risk for fall combative and uncooperative with care,soft restraints on both wrists for safety measures,incontinent of urine,bernadette care with total assistance given continue TPN infusion via picc line in left upper arm and give IV antibiotics per order.no adverse reactions noted.needs attended,hourly rounds made safety maintained.continue to monitor pt.
[2023-02-05] MEDS: ALBUTEROL SULFATE 0.083% 2.5 MG/3 ML VIAL.NEB INH PRN (19:47)
[2023-02-05 21:00] VITALS: BP_SYST 139
[2023-02-05] MEDS ORDERED: POTASSIUM CHLORIDE IV SCH ×9 (21:00)
[2023-02-05] MEDS ORDERED: [UNRECOGNIZED DRUG - OTHER] IV SCH ×9 (21:00)
[2023-02-05] MEDS ORDERED: K PHOS IV SCH ×9 (21:00)
[2023-02-05] MEDS ORDERED: TPN CENTRAL IV SCH ×9 (21:00)
[2023-02-05] MEDS ORDERED: SODIUM ACETATE IV SCH ×9 (21:00)
[2023-02-05] MEDS: FAT EMULSIONS 250 ML IV SCH (22:22)
[2023-02-06 00:08] VITALS: BP_SYST 156
[2023-02-06] MEDS: AMPICILLIN SODIUM/SULBACTAM NA 3 GM in NS 100 ML IV SCH ×5 (00:57→23:41)
[2023-02-06] MEDS: LORazepam 2 MG/ML VIAL IVP PRN ×3 (01:02→21:48)
[2023-02-06] MEDS: ALBUTEROL SULFATE 0.083% 2.5 MG/3 ML VIAL.NEB INH PRN (01:55)
[2023-02-06] MEDS: ACETYLCYSTEINE 10% 4 ML VIAL (RT) INH SCH ×5 (03:45→19:39)
[2023-02-06] MEDS: IPRATROPIUM BROM 0.5 MG/2.5 ML VIAL.NEB (ATROVENT) INH SCH ×5 (03:45→19:39)
[2023-02-06] MEDS: HEPARIN SODIUM,PORCINE 5,000 UNITS/ML VIAL SUBCUT SCH ×3 (06:10→21:58)
[2023-02-06] MEDS: SODIUM CL 0.9% INH SCH (07:20)
[2023-02-06 08:00] VITALS: BP_SYST 166
[2023-02-06 08:35] LABS: BASOPHILS # (AUTO) 0.1 K/uL (0.0-0.2); BASOPHILS % (AUTO) 0.7 % (0.0-2.0); EOSINOPHILS # (AUTO) 0.1 K/uL (0.0-0.4); EOSINOPHILS % (AUTO) 0.7 % (0.0-4.0); HEMATOCRIT 35.3 % (36-54); HEMOGLOBIN 11.5 g/dL (14.0-18.0); LYMPHOCYTES # (AUTO) 0.6 K/uL (1.0-5.5); LYMPHOCYTES % (AUTO) 3.1 % (20.5-51.5); MEAN CORPUSCULAR HEMOGLOBIN 29 pg (27-31); MEAN CORPUSCULAR HGB CONC 33 % (32-36); MEAN CORPUSCULAR VOLUME 89 fL (79.0-98.0); MONOCYTES # (AUTO) 0.8 K/uL (0.0-1.0); MONOCYTES % (AUTO) 4.6 % (1.7-9.3); NEUTROPHILS # (AUTO) 16.5 K/uL (1.8-7.7); NEUTROPHILS % (AUTO) 90.9 % (40.0-70.0); RED BLOOD CELL COUNT(AUTO) 3.95 MIL/uL (4.2-6.2); RED CELL DISTRIBUTION WIDTH 14.8 % (9.0-15.0); WHITE BLOOD COUNT (AUTO) 18.2 K/uL (4.8-10.8)
[2023-02-06 08:49] LABS: ALANINE AMINOTRANSFERASE 20 U/L (12-78); ANION GAP 9 (5-15); ASPARTATE AMINOTRANSFERASE 17 U/L (10-37); CALCIUM 9.4 mg/dL (8.4-11.0); CHLORIDE 106 mmol/L (98-107); CREATININE 0.91 mg/dL (0.55-1.30); GLUCOSE 326 mg/dL (70-99); PHOSPHORUS 3.2 mg/dL (2.7-4.5); TOTAL BILIRUBIN 1.6 mg/dL (0.0-1.0); UREA NITROGEN, BLOOD 13 mg/dL (8-21)
[2023-02-06 08:51] VITALS: BP_SYST 152
[2023-02-06] MEDS: FAMOTIDINE PF 20 MG/2 ML VIAL IVP SCH (09:28)
[2023-02-06] MEDS: INSULIN GLARGINE 100 UNITS/ML, 10 ML VIAL SUBCUT SCH (09:29)
[2023-02-06 10:09] LABS: PLATELET COUNT (AUTO) 131 K/uL (130-430)
--- NOTE | 2023-02-06 11:19 | NUR ---
Nutrition F/U RD reviewed pts current EMR including diet hx, physician notes, nursing notes, pertinent labs/meds/procedures, care trends and care activity. Subjective Information 02/04: TPN and lipids have been started. 02/05: Pt has become confused/agitated/on restraints RD visited pt but he was resting and RD did not want to disturb him. RD witnessed TPN running @ 52mL/hr. RD called RN Neena and was able to find out some info. She said pt is not being offered clear liquids, even though he has a diet order for it. She said he was wheezing and at high risk of aspiration. RD asked about GT placement and Neena said that he has to be transferred for that procedure. RD brought up his high blood sugars and RN was aware. Per EMR review: abd soft, non-distended w/ active bowel sounds; Dany: 13; BP trending high (152/85H); LABS: BG 326 H, K+ 3.4L, WBC 11.3 H. Current Diet Order/Nutrition Support Clear liquid diet x 2 days & TPN: D40, AA8.5% @ 52mL/hr & 20% ILE @ 5mL/hr via Central line TPN Provides: 1301 kcal, 53 g PRO, total volume 1368mL; GIR: 2.5 mg/kg/min % PO intake Fair avg of 50% x 2 meal records Last BM 02/06 x 2 Estimated Energy Expenditure (kcals/day) 4042-5500 kcal (30-35 kcal/kg CBW [70kg] d/t CA) Estimated Protein Required (g/day) 105-140 g (1.5-2 g/kg CBW d/t wounds, CA) Estimated Fluid Required (l/day) 2.1-2.4L (1mL/kcal maintenance) Problem/Etiology/Signs/Symptoms * Increased energy and protein utilization r/t metabolic demands AEB estimated nutritional needs for wound healing (ongoing) * Suboptimal nutritional intakes R/T dysphagia AEB strict NPO order, TPN order (resolved) Expected Outcomes/Goals TPN tolerated at goal rate, TPN provides >95% estimated nutritional needs, improvements in skin integrity, nutrition-related labs trending WNL, weight maintenance, BM q 1-3 days Dietitian Recommendations * Continue CLD, if medically appropriate * If pt agrees to surgical GT (best to use EN over TPN to maintain gut integrity) --Jevity 1.5 @ 60mL/hr (goal) via GT Provides: 2160 kcal, 92g PRO, 1094 mL free water * TPN recommendation --D40, AA10% @ 90mL/hr & 20%ILE @ 5mL/hr via central line Provides: 2141 kcal, 108 g PRO, total volume:2280mL GIR: 4.3 mg/kg/min Meets: 102 % of lower est kcal, 103% of lower est PRO, 109% of lower est fluid needs Follow up * High risk: see pt in 2-3 days GS, MPH, RD
--- NOTE | 2023-02-06 11:21 | NUR ---
Dietitian Recommendations * Continue CLD, if medically appropriate * If pt agrees to surgical GT (best to use EN over TPN to maintain gut integrity) --Jevity 1.5 @ 60mL/hr (goal) via GT Provides: 2160 kcal, 92g PRO, 1094 mL free water * TPN recommendation: --D40, AA10% @ 90mL/hr & 20%ILE @ 5mL/hr via central line Provides: 2141 kcal, 108 g PRO, total volume:2280mL GIR: 4.3 mg/kg/min Meets: 102 % of lower est kcal, 103% of lower est PRO, 109% of lower est fluid needs GS, MPH, RD Please refer to Nutrition F/U for further details. Thanks!
[2023-02-06 12:00] VITALS: BP_SYST 151
[2023-02-06] MEDS: MORPHINE 2 MG/ML INJ. SYRINGE IVP PRN ×2 (12:22→18:16)
[2023-02-06] MEDS: INSULIN REGULAR, HUMAN 100 UNITS/ML, 3 ML VIAL (humuLIN R) SUBCUT PRN ×2 (12:50→23:55)
[2023-02-06 16:00] VITALS: BP_SYST 154
[2023-02-06] MEDS: FLUCONAZOLE 200 mg/ NS 100 ML IV SCH (16:02)
--- NOTE | 2023-02-06 18:51 | NUR ---
pt confused,shortness of breathe with wheezing,on O2 4L/NC,sat 92%,agitated and restless,tried to get out of bed,high risk for fall d/t unsteady gaits and weakness moans and groans at times,give morphine 2 mg IV as prn order for pain and ativan 1 mg IV as prn order for agitation,incontinent of urine,bernadette care done,total care provided diaper changed.pt is high risk for aspiration,keep HOB up,continue IV TPN infusion soft restraints on both wrists to prevent pt from fall & injury,safety maintained.continue to monitor pt.
[2023-02-06 20:30] VITALS: BP_SYST 148
[2023-02-06] MEDS ORDERED: [UNRECOGNIZED DRUG - OTHER] IV SCH ×9 (21:00)
[2023-02-06] MEDS ORDERED: K PHOS IV SCH ×9 (21:00)
[2023-02-06] MEDS ORDERED: TPN CENTRAL IV SCH ×9 (21:00)
[2023-02-06] MEDS ORDERED: POTASSIUM CHLORIDE IV SCH ×9 (21:00)
[2023-02-06] MEDS ORDERED: SODIUM ACETATE IV SCH ×9 (21:00)
[2023-02-06] MEDS: FAT EMULSIONS 250 ML IV SCH (21:49)
[2023-02-07] VITALS (10 sets, daily range): BP systolic 66–141
--- NOTE | 2023-02-07 01:15 | NUR ---
Hourly Rounding patient awake HOB elevated SOFT WRIST Restraints inplace FALL RISK did release tolerate / monitor .
[2023-02-07] MEDS: ACETYLCYSTEINE 10% 4 ML VIAL (RT) INH SCH ×6 (01:18→23:05)
[2023-02-07] MEDS: IPRATROPIUM BROM 0.5 MG/2.5 ML VIAL.NEB (ATROVENT) INH SCH ×6 (01:18→23:05)
--- NOTE | 2023-02-07 03:53 | NUR ---
Phoned paged DR HOWELL Regarding sustaining HR 120 - 135 bpm also converted to A FIB .
--- NOTE | 2023-02-07 04:00 | NUR ---
PHONED PAGED A MAYNOR RETURN CALL PENDING .
--- NOTE | 2023-02-07 04:01 | NUR ---
Patient has converted back to NSR 78 - 88 bpm continue to monitor / .
--- NOTE | 2023-02-07 04:01 | NUR ---
Paged Dr. Hart Efrem
--- NOTE | 2023-02-07 04:25 | NUR ---
BED BATH given patient tolerated position change tolerated FALL MEASURES implemented cont. to monitor .
[2023-02-07 06:14] LABS: BASOPHILS # (AUTO) 0.1 K/uL (0.0-0.2); BASOPHILS % (AUTO) 0.4 % (0.0-2.0); EOSINOPHILS # (AUTO) 0.3 K/uL (0.0-0.4); EOSINOPHILS % (AUTO) 1.6 % (0.0-4.0); HEMATOCRIT 39.3 % (36-54); HEMOGLOBIN 12.7 g/dL (14.0-18.0); LYMPHOCYTES # (AUTO) 0.8 K/uL (1.0-5.5); LYMPHOCYTES % (AUTO) 4.4 % (20.5-51.5); MEAN CORPUSCULAR HEMOGLOBIN 29 pg (27-31); MEAN CORPUSCULAR HGB CONC 33 % (32-36); MEAN CORPUSCULAR VOLUME 90 fL (79.0-98.0); MONOCYTES # (AUTO) 0.8 K/uL (0.0-1.0); MONOCYTES % (AUTO) 4.4 % (1.7-9.3); NEUTROPHILS # (AUTO) 17.1 K/uL (1.8-7.7); NEUTROPHILS % (AUTO) 89.2 % (40.0-70.0); RED BLOOD CELL COUNT(AUTO) 4.37 MIL/uL (4.2-6.2); RED CELL DISTRIBUTION WIDTH 14.8 % (9.0-15.0); WHITE BLOOD COUNT (AUTO) 19.2 K/uL (4.8-10.8)
[2023-02-07] MEDS: INSULIN REGULAR, HUMAN 100 UNITS/ML, 3 ML VIAL (humuLIN R) SUBCUT PRN (07:00)
[2023-02-07] MEDS: HEPARIN SODIUM,PORCINE 5,000 UNITS/ML VIAL SUBCUT SCH ×3 (07:01→22:00)
[2023-02-07 07:25] LABS: ALANINE AMINOTRANSFERASE 21 U/L (12-78); ALBUMIN 1.9 g/dL (3.4-4.8); ANION GAP 11 (5-15); ASPARTATE AMINOTRANSFERASE 10 U/L (10-37); CALCIUM 10.1 mg/dL (8.4-11.0); CHLORIDE 109 mmol/L (98-107); CREATININE 0.93 mg/dL (0.55-1.30); GLUCOSE 269 mg/dL (70-99); PHOSPHORUS 3.8 mg/dL (2.7-4.5); TOTAL BILIRUBIN 1.6 mg/dL (0.0-1.0); UREA NITROGEN, BLOOD 15 mg/dL (8-21)
[2023-02-07] MEDS: SODIUM CL 0.9% INH SCH ×2 (07:26→19:00)
[2023-02-07] MEDS: AMPICILLIN SODIUM/SULBACTAM NA 3 GM in NS 100 ML IV SCH (07:35)
[2023-02-07] MEDS: FAMOTIDINE PF 20 MG/2 ML VIAL IVP SCH (08:59)
[2023-02-07] MEDS: INSULIN GLARGINE 100 UNITS/ML, 10 ML VIAL SUBCUT SCH (09:00)
[2023-02-07 09:01] LABS: PLATELET COUNT (AUTO) 98 K/uL (130-430)
--- NOTE | 2023-02-07 09:15 | NUR ---
RT NOTE: 0915 Patient placed on HFNC at this time. Gradually increased settings and final HFNC settings are maxxed out at 40LPM and 100% FiO2. SpO2 was in the high 80s, but slowly improved as settings increased. FARIDEH Del Cid made aware. Will await transfer to ICU.
--- NOTE | 2023-02-07 09:45 | NUR ---
patient on 4lp o2 via nc, using accesory muscles during respiration, gurgling noted, notified RT and Dr. Hurd,
--- NOTE | 2023-02-07 11:00 | NUR ---
patient currently on hi flow max settings, repositioned for comfort, audible gurgling observed, Dr. mills made aware, orders obtained to transfer patient to icu
--- NOTE | 2023-02-07 13:15 | NUR ---
report given to icu nurse that will be receiving patient, patient laying in bed with respiratory distress observed and copious amounts of secretions, hi flow oxygen in place, patient repositioned for comfort and morphine administered prior to transfer
--- NOTE | 2023-02-07 13:30 | NUR ---
FIRST CONTACT WITH PT, LAYING FLAT IN BED, IN RESPIRATORY DISTRESS, TACHYPNIC AT 38 BREATHS.MIN, AT 82% ON HIGH [id number]@100%, PT MOVING ALL EXTREMITIES IN BED, UNABLE TO FOLLOW SIMPLE COMMANDS. PT CONFUSED, ON BILATERAL WRIST RESTRAINTS. NURSE LORRAINE PAGED TO ROOM.
[2023-02-07] MEDS: MORPHINE 2 MG/ML INJ. SYRINGE IVP PRN ×2 (13:39→17:39)
--- NOTE | 2023-02-07 14:20 | NUR ---
Wound/Integumentary Evaluation Attempted: Wound/integumentary evaluation was attempted, but evaluation was held secondary to respiratory instability (patient was just transferred to ICU and placed on Hi-Flow O2 (saturating in the 80's)).
--- NOTE | 2023-02-07 14:27 | NUR ---
DR HOWELL PAGED TO NOTIFY OF PT'S ICU TRANSFER AND TO UPDATE ON PT'S CURRENT STATUS.
--- NOTE | 2023-02-07 14:41 | NUR ---
DR HOWELL IN ICU, REPORTED FINDINGS, HE CALLED ARIEL MONTES (HIS SON) TO INFORM HIM OF POSSIBLE INTUBATION. HE STATES HE WILL DISCUSS WITH AND CALL BACK.
--- NOTE | 2023-02-07 16:13 | NUR ---
PT WITH AUDIBLE RHONCHI, RT CALLED TO BEDSIDE FOR BRAETHING TX. DR PARSONS CALLED TO GET CLARIFICATION IF WE CAN DO DEEP SUCTIONING SECONDARY TO STENT
[2023-02-07] MEDS: PIPERACILLIN/TAZO 4.5GM/DEX-IS 100 ML IV SCH ×2 (17:20→20:56)
[2023-02-07] MEDS: FLUCONAZOLE 200 mg/ NS 100 ML IV SCH (17:23)
[2023-02-07] MEDS: ALBUTEROL SULFATE 0.083% 2.5 MG/3 ML VIAL.NEB INH PRN ×2 (19:30→23:05)
[2023-02-07] MEDS: FAT EMULSIONS 250 ML IV SCH (20:11)
[2023-02-07] MEDS: LORazepam 2 MG/ML VIAL IVP PRN (20:15)
[2023-02-07] MEDS ORDERED: MIDAZOLAM HCL 5 MG/5 ML VIAL ONE (20:35)
--- NOTE | 2023-02-07 20:35 | NUR ---
RT NOTES ASSISTED DR HERNANDEZ WITH INTUBATION. GLIDESCOPE USED WITH SIZE 4 MAC BLADE TO INSERT 7.5 ETT SECURED AT 26 CM LIP LINE WITH RIP. CO2 DETECTOR USED YELLOW COLOR CHANGE OBSERVED. BILATERAL CHEST RISE OBSERVED AND EQUAL BILATERAL B/S AUSCULTATED. PLACED ON VENT. AC 18 VT 500 PEEP +5 FIO2 100% PER DR HOWELL. STAT CXRAY ORDERED TO CONFIRM ETT PLACEMENT. ABG ORDERED. SPUTUM SAMPLE OBTAINED. Addendum: 02/07/23 at 2127 by Renan Singer RT Amended: Links added.
[2023-02-07] MEDS ORDERED: PROPOFOL DRIP 100 ML IV ONE (20:42)
[2023-02-07] MEDS ORDERED: FENTANYL CITRATE IV ONE (20:42)
[2023-02-07] MEDS ORDERED: NACL IV ONE (20:42)
[2023-02-07] MEDS ORDERED: POTASSIUM ACETATE IV SCH ×8 (21:00)
[2023-02-07] MEDS ORDERED: K PHOS IV SCH ×8 (21:00)
[2023-02-07] MEDS ORDERED: [UNRECOGNIZED DRUG - OTHER] IV SCH ×8 (21:00)
[2023-02-07] MEDS ORDERED: TPN CENTRAL IV SCH ×8 (21:00)
[2023-02-07] MEDS ORDERED: SODIUM ACETATE IV SCH ×8 (21:00)
[2023-02-07] MEDS ORDERED: NOREPINEPHRINE BITARTRATE 4 MG in D5W 246 ML IV PRN (21:15)
[2023-02-07] MEDS ORDERED: FENTANYL CITRATE-0.9 % NACL/PF 100 ML IV PRN (21:15)
[2023-02-07] MEDS ORDERED: MIDAZOLAM HCL 5 MG/5 ML VIAL IVP ONE (21:30)
[2023-02-08] VITALS (33 sets, daily range): BP systolic 74–145
[2023-02-08] MEDS: IPRATROPIUM BROM 0.5 MG/2.5 ML VIAL.NEB (ATROVENT) INH SCH ×6 (03:05→23:12)
[2023-02-08] MEDS: ALBUTEROL SULFATE 0.083% 2.5 MG/3 ML VIAL.NEB INH PRN ×2 (03:06→19:41)
[2023-02-08] MEDS: ACETYLCYSTEINE 10% 4 ML VIAL (RT) INH SCH ×6 (03:06→23:12)
[2023-02-08] MEDS: HEPARIN SODIUM,PORCINE 5,000 UNITS/ML VIAL SUBCUT SCH ×3 (06:00→21:22)
[2023-02-08] MEDS: PIPERACILLIN/TAZO 4.5GM/DEX-IS 100 ML IV SCH (06:19)
[2023-02-08] MEDS: INSULIN REGULAR, HUMAN 100 UNITS/ML, 3 ML VIAL (humuLIN R) SUBCUT PRN ×3 (06:20→17:40)
[2023-02-08] MEDS: SODIUM CL 0.9% INH SCH ×2 (07:00→19:00)
--- NOTE | 2023-02-08 07:30 | NUR ---
RECEIVED PT FROM FARIDEH SIMPSON. ASSUMED CARE.
--- NOTE | 2023-02-08 07:32 | NUR ---
RT NOTES FIO2 to 0.40. RN made aware. Will monitor pt.
[2023-02-08] MEDS ORDERED: ETOMIDATE 20 MG/ 10 ML VIAL (AMIDATE) IVP ONE (07:43)
[2023-02-08 07:52] LABS: ALANINE AMINOTRANSFERASE 31 U/L (12-78); ALBUMIN 1.7 g/dL (3.4-4.8); ANION GAP 10 (5-15); ASPARTATE AMINOTRANSFERASE 12 U/L (10-37); CALCIUM 9.6 mg/dL (8.4-11.0); CHLORIDE 111 mmol/L (98-107); TOTAL BILIRUBIN 1.4 mg/dL (0.0-1.0); UREA NITROGEN, BLOOD 24 mg/dL (8-21)
[2023-02-08 07:55] LABS: GLUCOSE 405 mg/dL (70-99)
[2023-02-08 08:46] LABS: BASOPHILS # (AUTO) 0.1 K/uL (0.0-0.2); BASOPHILS % (AUTO) 0.7 % (0.0-2.0); EOSINOPHILS # (AUTO) 0.5 K/uL (0.0-0.4); EOSINOPHILS % (AUTO) 2.4 % (0.0-4.0); HEMATOCRIT 33.7 % (36-54); HEMOGLOBIN 10.8 g/dL (14.0-18.0); LYMPHOCYTES # (AUTO) 0.9 K/uL (1.0-5.5); LYMPHOCYTES % (AUTO) 4.3 % (20.5-51.5); MEAN CORPUSCULAR HEMOGLOBIN 29 pg (27-31); MEAN CORPUSCULAR HGB CONC 32 % (32-36); MEAN CORPUSCULAR VOLUME 91 fL (79.0-98.0); MONOCYTES # (AUTO) 0.4 K/uL (0.0-1.0); MONOCYTES % (AUTO) 2.1 % (1.7-9.3); NEUTROPHILS # (AUTO) 18.3 K/uL (1.8-7.7); NEUTROPHILS % (AUTO) 90.5 % (40.0-70.0); RED BLOOD CELL COUNT(AUTO) 3.71 MIL/uL (4.2-6.2); RED CELL DISTRIBUTION WIDTH 15.7 % (9.0-15.0); WHITE BLOOD COUNT (AUTO) 20.2 K/uL (4.8-10.8)
[2023-02-08 08:59] LABS: PLATELET COUNT (AUTO) 187 K/uL (130-430)
[2023-02-08] MEDS: FAMOTIDINE PF 20 MG/2 ML VIAL IVP SCH (09:00)
[2023-02-08] MEDS: INSULIN GLARGINE 100 UNITS/ML, 10 ML VIAL SUBCUT SCH (09:00)
--- NOTE | 2023-02-08 09:52 | NUR ---
REPORTED TO DR. HOWELL BS 405, K+=3.2, RECEIVED ORDER FOR KCL 20MEQ IV, REGULAR INSULIN 5UNITS SQ.
[2023-02-08] MEDS ORDERED: KCL 20 mEq in 100 mL (PREMIX) 100 ML IV ONE (10:00)
[2023-02-08] MEDS ORDERED: INSULIN REGULAR, HUMAN 100 UNITS/ML, 3 ML VIAL SUBCUT ONE (10:00)
[2023-02-08] MEDS ORDERED: CEFEPIME 1 GM in D5W 50 ML IV SCH (10:15)
--- NOTE | 2023-02-08 10:57 | NUR ---
LANTUS 10 UNIT SQ AND REGULAR INSULIN 5 UNITS SQ GIVEN FOR BS= 410. 20MEQ KCL IVPB GIVEN FOR K+=3.2.
--- NOTE | 2023-02-08 11:00 | NUR ---
DR. PARSONS AT BEDSIDE TO ASSESS PT.
[2023-02-08] MEDS: CEFEPIME 1 GM in D5W 50 ML IV SCH (13:39)
--- NOTE | 2023-02-08 13:44 | NUR ---
BS 283 6 UNITS REG INSULIN SQ GIVEN TO RU ABDOMEN. SCHEDULED MEDS GIVEN.
[2023-02-08] MEDS: MICAFUNGIN SODIUM 50 MG in NS 50 ML IV SCH (14:48)
[2023-02-08] MEDS: PROPOFOL DRIP 100 ML IV PRN (15:12)
[2023-02-08] MEDS: FLUCONAZOLE 200 mg/ NS 100 ML IV SCH (16:07)
[2023-02-08] MEDS: NOREPINEPHRINE BITARTRATE 16 MG in NS 234 ML IV PRN (16:12)
--- NOTE | 2023-02-08 18:59 | NUR ---
ENDORSED PT TO FARIDEH SIMPSON. ALL QUESTIONS AND CONCERNS ADDRESSED.
[2023-02-08] MEDS ORDERED: [UNRECOGNIZED DRUG - OTHER] IV SCH ×7 (21:00)
[2023-02-08] MEDS ORDERED: TPN CENTRAL IV SCH ×7 (21:00)
[2023-02-08] MEDS ORDERED: K PHOS IV SCH ×7 (21:00)
[2023-02-08] MEDS ORDERED: POTASSIUM ACETATE IV SCH ×7 (21:00)
[2023-02-08] MEDS ORDERED: MVI IV SCH ×7 (21:00)
[2023-02-08] MEDS: FAT EMULSIONS 250 ML IV SCH (21:22)
[2023-02-09] VITALS (34 sets, daily range): BP systolic 77–148
[2023-02-09] MEDS: INSULIN REGULAR, HUMAN 100 UNITS/ML, 3 ML VIAL (humuLIN R) SUBCUT PRN ×5 (00:03→23:21)
[2023-02-09] MEDS: ACETYLCYSTEINE 10% 4 ML VIAL (RT) INH SCH ×6 (03:00→23:20)
[2023-02-09] MEDS: IPRATROPIUM BROM 0.5 MG/2.5 ML VIAL.NEB (ATROVENT) INH SCH ×6 (03:00→23:20)
[2023-02-09] MEDS: HEPARIN SODIUM,PORCINE 5,000 UNITS/ML VIAL SUBCUT SCH ×3 (05:38→21:21)
[2023-02-09] MEDS: PROPOFOL DRIP 100 ML IV PRN ×2 (05:40→21:23)
[2023-02-09 06:41] LABS: ANION GAP 7 (5-15); CALCIUM 9.3 mg/dL (8.4-11.0); CHLORIDE 111 mmol/L (98-107); CREATININE 1.05 mg/dL (0.55-1.30); GLUCOSE 263 mg/dL (70-99); UREA NITROGEN, BLOOD 27 mg/dL (8-21)
[2023-02-09 06:57] LABS: BASOPHILS # (AUTO) 0.2 K/uL (0.0-0.2); BASOPHILS % (AUTO) 0.8 % (0.0-2.0); EOSINOPHILS # (AUTO) 0.8 K/uL (0.0-0.4); EOSINOPHILS % (AUTO) 4.1 % (0.0-4.0); HEMATOCRIT 31.6 % (36-54); HEMOGLOBIN 10.2 g/dL (14.0-18.0); LYMPHOCYTES # (AUTO) 1.5 K/uL (1.0-5.5); LYMPHOCYTES % (AUTO) 7.6 % (20.5-51.5); MEAN CORPUSCULAR HEMOGLOBIN 29 pg (27-31); MEAN CORPUSCULAR HGB CONC 32 % (32-36); MEAN CORPUSCULAR VOLUME 90 fL (79.0-98.0); MONOCYTES # (AUTO) 0.9 K/uL (0.0-1.0); MONOCYTES % (AUTO) 4.6 % (1.7-9.3); NEUTROPHILS # (AUTO) 15.9 K/uL (1.8-7.7); NEUTROPHILS % (AUTO) 82.9 % (40.0-70.0); RED BLOOD CELL COUNT(AUTO) 3.52 MIL/uL (4.2-6.2); RED CELL DISTRIBUTION WIDTH 15.4 % (9.0-15.0); WHITE BLOOD COUNT (AUTO) 19.2 K/uL (4.8-10.8)
[2023-02-09] MEDS: SODIUM CL 0.9% INH SCH ×2 (07:00→19:00)
[2023-02-09 07:19] LABS: PLATELET COUNT (AUTO) 162 K/uL (130-430)
[2023-02-09] MEDS: FAMOTIDINE PF 20 MG/2 ML VIAL IVP SCH (08:44)
[2023-02-09] MEDS: INSULIN GLARGINE 100 UNITS/ML, 10 ML VIAL SUBCUT SCH (08:49)
--- NOTE | 2023-02-09 10:55 | NUR ---
MD HOWELL AT BEDSIDE, ASKED ABOUT PEG TUBE PLACEMENT. PER MD HOWELL, MD ISAEL DAHL ON CASE. AT [facility], PEG TUBE NOT PLACED BECAUSE PATIENT DID NOT CONSENT TO IT, ONLY ESOPHAGEAL STENT AND "WANTED TO EAT". PER MD HOWELL, PT ASPIRATED AND IS NOW INTUBATED. PER MD HOWELL, TO RECONSULT MD DAHL GENERAL SURGERY FOR PEG TUBE PLACEMENT ONCE INFECTIOUS PROCESS IS UNDER CONTROL BUT STILL WHILE PT IS INTUBATED. PER MD, ANESTHESIA AT [facility] NOT COMFORTABLE WITH LACK OF PATENT AIRWAY PRIOR TO INTUBATION FOR SURGERY.
--- NOTE | 2023-02-09 11:22 | NUR ---
Nutrition F/U RD reviewed pts current EMR including diet hx, physician notes, nursing notes, pertinent labs/meds/procedures, care trends and care activity. Subjective Information 02/04: TPN and lipids have been started. 02/05: Pt has become confused/agitated/on restraints 02/08: Pt intubated and transferred to ICU RD attended ICU rounds and s/w primary RN. RN reports that pt is now intubated; on propofol @ 30 mcg (332 kcal); has stage 2 on coccyx; is on TPN @ 60mL/hr and ILE @ 5mL/hr. There was some discussion of him getting a PEG, and that is the best option rather than OGT, d/t his esophageal CA/mass. The pharmacist noted that the lipids should be DC d/t the propofol he is on; RD agrees. RD witnessed TPN running @ 60mL/hr, ILE @ 5mL/h; Vetot of 11.. Per EMR review: abd soft, w/ active bowel sounds; Dany: 10; BP trending low (97/58H); LABS 02/09: Na 147H, BG 263 H, K+ 3.5WnL, WBC 19.2 H. Current Diet Order/Nutrition Support Clear liquid diet x 5 days & TPN: D30, AA8.5% @ 60mL/hr & 20% ILE @ 5mL/hr via Central line TPN Provides: 1219 kcal, 61 g PRO, total volume 1560mL; GIR: 2.1 mg/kg/min % PO intake NA Last BM 02/07 x 2 NEW Estimated Energy Expenditure (kcals/day) 1657 kcal (PSU 2002: vent/ICU. MSJ 1405, Tmax 37, Vetot 11.0) Estimated Protein Required (g/day) 105-140 g (1.5-2 g/kg CBW d/t wounds, CA) Estimated Fluid Required (l/day) 2.1-2.4L (1mL/kcal maintenance) Problem/Etiology/Signs/Symptoms * Increased energy and protein utilization r/t metabolic demands AEB estimated nutritional needs for wound healing (ongoing) * Suboptimal nutritional intakes R/T dysphagia AEB strict NPO order, TPN order (resolved) Expected Outcomes/Goals TPN tolerated at goal rate, TPN provides >95% estimated nutritional needs, improvements in skin integrity, nutrition-related labs trending WNL, weight maintenance, BM q 1-3 days Dietitian Recommendations * Please update diet order to reflect NPO status * When GT is placed: (best to use EN over TPN to maintain gut integrity) --Jevity 1.5 @ 45mL/hr (goal) via GT Provides (w/ current prop): 1952 kcal, 69g PRO, 821 mL free water * TPN recommendation --D30, AA10% @ 90mL/hr via central line. DC ILE while propofol is running Provides(w/ current prop): 1866 kcal, 108 g PRO, total volume:2160mL; GIR: 3.2 mg/kg/min Meets: 113 % of est kcal, 103% of lower est PRO, 100% of lower est fluid needs * If/when pt is extubated/off propofol, please contact RD to re-assess nutrient needs Follow up * High risk: see pt in 2-3 days CHERYL, MPH, RD
--- NOTE | 2023-02-09 11:23 | NUR ---
Dietitian Recommendations * Please update diet order to reflect NPO status * When GT is placed: (best to use EN over TPN to maintain gut integrity) --Jevity 1.5 @ 45mL/hr (goal) via GT Provides (w/ current prop): 1952 kcal, 69g PRO, 821 mL free water * TPN recommendation --D30, AA10% @ 90mL/hr via central line. DC ILE while propofol is running Provides(w/ current prop): 1866 kcal, 108 g PRO, total volume:2160mL; GIR: 3.2 mg/kg/min Meets: 113 % of est kcal, 103% of lower est PRO, 100% of lower est fluid needs * If/when pt is extubated/off propofol, please contact RD to re-assess nutrient needs CHERYL, MPH, RD Please refer to Nutrition F/U for further details. Thanks!
[2023-02-09] MEDS: CEFEPIME 1 GM in D5W 50 ML IV SCH (12:04)
[2023-02-09] MEDS: MICAFUNGIN SODIUM 50 MG in NS 50 ML IV SCH (13:28)
[2023-02-09] MEDS: HYDROCORTISONE SOD SUCC 100 MG/2 ML VIAL IVP SCH ×2 (14:46→21:17)
[2023-02-09] MEDS: ALBUTEROL SULFATE 0.083% 2.5 MG/3 ML VIAL.NEB INH PRN ×2 (19:40→23:20)
--- NOTE | 2023-02-09 20:00 | NUR ---
PM SHIFT ASSESSMENT: RECEIVED PATIENT IN SUPINE POSITION, ETT TO VENT -TOLERATE THE SETTING, SEDATED WITH PROPOFOL , ON TPN FOR NUTRITION SUPPORT, INFUSING AT NAHUM PICC LINE, LONGORIA CATH IS IN PLACE DRAINING TO GRAVITY, SBP IS 81 , START LEVEPHED TO KEEP SBP >90, WILL CONTINUE TO MONITOR.
[2023-02-09] MEDS ORDERED: TPN CENTRAL IV SCH ×8 (21:00)
[2023-02-09] MEDS ORDERED: K PHOS IV SCH ×8 (21:00)
[2023-02-09] MEDS ORDERED: POTASSIUM ACETATE IV SCH ×8 (21:00)
[2023-02-09] MEDS ORDERED: [UNRECOGNIZED DRUG - OTHER] IV SCH ×8 (21:00)
[2023-02-10] VITALS (28 sets, daily range): BP systolic 91–159
--- NOTE | 2023-02-10 02:00 | NUR ---
CHG BATH GIVEN , CHANGED ALL LINENS AND GOWN, TOLERATED WELL.
[2023-02-10] MEDS: ALBUTEROL SULFATE 0.083% 2.5 MG/3 ML VIAL.NEB INH PRN ×6 (03:30→23:22)
[2023-02-10] MEDS: ACETYLCYSTEINE 10% 4 ML VIAL (RT) INH SCH ×6 (03:31→23:42)
[2023-02-10] MEDS: IPRATROPIUM BROM 0.5 MG/2.5 ML VIAL.NEB (ATROVENT) INH SCH ×6 (03:31→23:00)
--- NOTE | 2023-02-10 04:00 | NUR ---
PICC LINE DRESSING CHANGED UNDER STERILE TECHNIQUE, SITE IS CLEAN AND DRY.
--- NOTE | 2023-02-10 06:00 | NUR ---
PATIENT HEART RATE DOWN TO 44, TURN OFF PROPOFOL, PATIENT START MOVING HIS ARMS AND LEGS, RESTRAIN IS ON , WILL CONTINUE TO CLOSE MONITOR.
[2023-02-10] MEDS: PROPOFOL DRIP 100 ML IV PRN ×2 (06:04→22:07)
[2023-02-10] MEDS: INSULIN REGULAR, HUMAN 100 UNITS/ML, 3 ML VIAL (humuLIN R) SUBCUT PRN ×4 (06:16→22:12)
[2023-02-10] MEDS: HYDROCORTISONE SOD SUCC 100 MG/2 ML VIAL IVP SCH ×3 (06:18→22:00)
[2023-02-10] MEDS: HEPARIN SODIUM,PORCINE 5,000 UNITS/ML VIAL SUBCUT SCH ×2 (06:19→13:18)
[2023-02-10] MEDS: SODIUM CL 0.9% INH SCH (07:00)
[2023-02-10 07:06] LABS: ALANINE AMINOTRANSFERASE 34 U/L (12-78); ALBUMIN 1.5 g/dL (3.4-4.8); ANION GAP 9 (5-15); ASPARTATE AMINOTRANSFERASE 23 U/L (10-37); CALCIUM 9.5 mg/dL (8.4-11.0); CHLORIDE 109 mmol/L (98-107); CREATININE 0.86 mg/dL (0.55-1.30); GLUCOSE 362 mg/dL (70-99); PHOSPHORUS 3.5 mg/dL (2.7-4.5); UREA NITROGEN, BLOOD 30 mg/dL (8-21)
--- NOTE | 2023-02-10 08:04 | NUR ---
RT NOTES 0800 PLACED PATIENT ON CPAP OF 5 AND PS OF 10. PER RN ORDER HR 55 BP 145/73 SPO2 94 30%FIO2 RR23 VT591 PATIENT IS TOLERATING WELL, WILL CONTINUE TO MONITOR, RN IS AWARE THAT PATIENT IS ON CPAP Addendum: 02/10/23 at 0808 by Paige Caruso RT Amended: Links added.
[2023-02-10] MEDS: FAMOTIDINE PF 20 MG/2 ML VIAL IVP SCH (08:21)
[2023-02-10] MEDS: INSULIN GLARGINE 100 UNITS/ML, 10 ML VIAL SUBCUT SCH ×2 (08:25→22:00)
[2023-02-10 08:35] LABS: BASOPHILS % (AUTO) 0.2 % (0.0-2.0); HEMATOCRIT 33.9 % (36-54); HEMOGLOBIN 10.8 g/dL (14.0-18.0); LYMPHOCYTES # (AUTO) 1.1 K/uL (1.0-5.5); LYMPHOCYTES % (AUTO) 7.2 % (20.5-51.5); MEAN CORPUSCULAR HEMOGLOBIN 29 pg (27-31); MEAN CORPUSCULAR HGB CONC 32 % (32-36); MEAN CORPUSCULAR VOLUME 92 fL (79.0-98.0); MONOCYTES # (AUTO) 0.5 K/uL (0.0-1.0); MONOCYTES % (AUTO) 3.1 % (1.7-9.3); NEUTROPHILS # (AUTO) 13.9 K/uL (1.8-7.7); NEUTROPHILS % (AUTO) 89.5 % (40.0-70.0); RED CELL DISTRIBUTION WIDTH 16.3 % (9.0-15.0); WHITE BLOOD COUNT (AUTO) 15.5 K/uL (4.8-10.8)
--- NOTE | 2023-02-10 09:30 | NUR ---
MD HOWELL AT BEDSIDE. UPDATED ON PATIENT'S STATUS. PT CURRENTLY ON SBT, DOING WELL. PER MD HOWELL, SPOKE TO MD ISAEL DAHL, GENERAL SURGERY, PLAN TO PLACE PEG TUBE TOMORROW. NO EXTUBATION OR PLANS FOR EXTUBATION UNTIL AFTER PROCEDURE. OK TO RE SEDATE PATIENT AND PLACE BACK ON ASSIST CONTROL MODE ON VENTILATOR. NAD NOTED. VSS. WILL CONT TO MONITOR PT.
--- NOTE | 2023-02-10 09:30 | NUR ---
MD HOWELL UPDATED ON BLOOD SUGARS TRENDING IN 300S. RECEIVED ORDER TO CHANGE LANTUS, 10 UNITS TO BID.
--- NOTE | 2023-02-10 10:08 | NUR ---
RT NOTES 0950 PT PLACED BACK TO ACMarissa GONG AWARE. Addendum: 02/10/23 at 1008 by Paige Caruso RT Amended: Links added.
--- NOTE | 2023-02-10 10:15 | NUR ---
UPDATED MD PRABHAKAR VIA TELEPHONE. UPDATED ON PLAN OF CARE. WBC DOWN TO 14,000 FROM 18,000 YESTERDAY. ELECTROLYTES AND KIDNEY FUNCTION WNL. NO NEW ORDERS RECEIVED. PER MD, WILL COME BY LATER THIS AFTERNOON. NAD NOTED. VSS. WILL CONT TO MONITOR PT.
[2023-02-10] MEDS: CEFEPIME 1 GM in D5W 50 ML IV SCH (12:02)
[2023-02-10] MEDS: MICAFUNGIN SODIUM 50 MG in NS 50 ML IV SCH (13:17)
--- NOTE | 2023-02-10 16:00 | NUR ---
CARE ENDORSED TO SELVIN GONG. PT VSS. NAD NOTED. PLAN FOR PEG TUBE PLACEMENT TOMORROW AT NOON BY MD ISAEL DAHL. AWAITING FAMILY TO ARRIVE TO HAVE CONSENT SIGNED FOR PROCEDURE. END OF CARE.
--- NOTE | 2023-02-10 16:30 | NUR ---
MD DR PARSONS IN TO SEE THE PATIENT.
--- NOTE | 2023-02-10 17:30 | NUR ---
FAMILY PT'S SON ZOE AT BEDSIDE, AWARE OF PLAN FOR SURGERY TOMORROW.
--- NOTE | 2023-02-10 20:00 | NUR ---
PM SHIFT ASSESSMENT: RECEIVED PATIENT IN BED , ETT TO VENT AND TOLERATED VENT SETTING AT THIS TIME, SEDATED WITH PROPOFOL, ON TPN AT 70 ML/HR INFUSING AT NAHUM PICC LINE , LONGORIA CATH IN PLACE DDRAINING TO GRAVITY, WILL CONTINUE TO MONITOR.
[2023-02-10] MEDS ORDERED: [UNRECOGNIZED DRUG - OTHER] IV SCH ×9 (21:00)
[2023-02-10] MEDS ORDERED: MAGNESIUM SULFATE IV SCH ×9 (21:00)
[2023-02-10] MEDS ORDERED: TPN CENTRAL IV SCH ×9 (21:00)
[2023-02-10] MEDS ORDERED: POTASSIUM ACETATE IV SCH ×9 (21:00)
[2023-02-10] MEDS ORDERED: K PHOS IV SCH ×9 (21:00)
--- NOTE | 2023-02-10 21:00 | NUR ---
SON AT BEDSIDE , AWARE THE SURGERY FOR TOMORROW, SON STATES DR DAHL HAVE NOT TALK TO THE FAMILY YET REGARDING THE SURGERY.
--- NOTE | 2023-02-10 22:48 | NUR ---
BS 326 LANTUS 10UNITS SQ GIVEN AND REGULAR INSULIN 8 UNITS SQ GIVEN.
--- NOTE | 2023-02-10 23:43 | NUR ---
SBP DROP TO 77 , START LEVOPHED DRIP TO KEEP SBP >90 PER PRN ORDER.
[2023-02-11] VITALS (31 sets, daily range): BP systolic 89–178
--- NOTE | 2023-02-11 00:24 | NUR ---
HR DROP TO 43 SOMETIMES, PAGED DR AGUILAR FOR THE ORDER . DECREASE PROPOFOL 20MCG, HR STILL BETWEEN 43-55.
[2023-02-11] MEDS: DOPamine PREMIX 250 ML IV PRN ×2 (01:32→01:34)
--- NOTE | 2023-02-11 02:00 | NUR ---
START DOPAMINE AT 4 MCG/KG/MIN, STOP LEVOPHED DRIP. WILL CONTINUE TO MONITOR VS.
[2023-02-11] MEDS: IPRATROPIUM BROM 0.5 MG/2.5 ML VIAL.NEB (ATROVENT) INH SCH ×6 (03:00→23:21)
[2023-02-11] MEDS: ALBUTEROL SULFATE 0.083% 2.5 MG/3 ML VIAL.NEB INH PRN ×4 (03:20→15:46)
[2023-02-11] MEDS: ACETYLCYSTEINE 10% 4 ML VIAL (RT) INH SCH ×6 (03:35→23:21)
[2023-02-11] MEDS: HYDROCORTISONE SOD SUCC 100 MG/2 ML VIAL IVP SCH ×3 (05:10→23:37)
[2023-02-11] MEDS: INSULIN REGULAR, HUMAN 100 UNITS/ML, 3 ML VIAL (humuLIN R) SUBCUT PRN ×3 (05:16→18:31)
[2023-02-11 06:23] LABS: BASOPHILS % (AUTO) 0.1 % (0.0-2.0); EOSINOPHILS % (AUTO) 0.1 % (0.0-4.0); HEMATOCRIT 36.6 % (36-54); HEMOGLOBIN 11.6 g/dL (14.0-18.0); LYMPHOCYTES # (AUTO) 0.8 K/uL (1.0-5.5); LYMPHOCYTES % (AUTO) 4.8 % (20.5-51.5); MEAN CORPUSCULAR HEMOGLOBIN 29 pg (27-31); MEAN CORPUSCULAR HGB CONC 32 % (32-36); MEAN CORPUSCULAR VOLUME 91 fL (79.0-98.0); MONOCYTES # (AUTO) 0.7 K/uL (0.0-1.0); MONOCYTES % (AUTO) 3.8 % (1.7-9.3); NEUTROPHILS # (AUTO) 15.6 K/uL (1.8-7.7); NEUTROPHILS % (AUTO) 91.2 % (40.0-70.0); RED BLOOD CELL COUNT(AUTO) 4.03 MIL/uL (4.2-6.2); RED CELL DISTRIBUTION WIDTH 15.6 % (9.0-15.0); WHITE BLOOD COUNT (AUTO) 17.1 K/uL (4.8-10.8)
[2023-02-11 06:55] LABS: ALANINE AMINOTRANSFERASE 53 U/L (12-78); ALBUMIN 1.8 g/dL (3.4-4.8); ANION GAP 8 (5-15); CALCIUM 10.1 mg/dL (8.4-11.0); CHLORIDE 109 mmol/L (98-107); CREATININE 0.72 mg/dL (0.55-1.30); GLUCOSE 300 mg/dL (70-99); PHOSPHORUS 3.3 mg/dL (2.7-4.5); UREA NITROGEN, BLOOD 30 mg/dL (8-21)
[2023-02-11] MEDS: PROPOFOL DRIP 100 ML IV PRN ×3 (06:57→23:27)
[2023-02-11 07:33] LABS: ASPARTATE AMINOTRANSFERASE 40 U/L (10-37)
[2023-02-11 08:41] LABS: PLATELET COUNT (AUTO) 124 K/uL (130-430)
[2023-02-11 08:42] LABS: PLATELET COUNT (AUTO) 174 K/uL (130-430)
--- NOTE | 2023-02-11 08:57 | NUR ---
rt notes 0857 Placed pt on CPAP 5,PS10 30% FIO2. Pt saturating 98%, HR 54. pt spon RR 18, pt pulling spon 597vt. Pt awake, seemed to undestand/lil agitated. FARIDEH Man made aware. will cont to monitor pt.
[2023-02-11] MEDS: INSULIN GLARGINE 100 UNITS/ML, 10 ML VIAL SUBCUT SCH ×2 (09:21→23:35)
[2023-02-11] MEDS: FAMOTIDINE PF 20 MG/2 ML VIAL IVP SCH (09:22)
--- NOTE | 2023-02-11 11:05 | NUR ---
rt notes 1105 Pt back to AC mode due to awaiting OR surgery team pecan picker. Pt lasted for 2 hours on CPAP. Pt alert, awake but litle bit agitated. Pt did good on daily CPAP trial. ABG was drawn on CPAP mode. FARIDEH Man made aware.
[2023-02-11] MEDS: CEFEPIME 1 GM in D5W 50 ML IV SCH (12:33)
--- NOTE | 2023-02-11 13:36 | NUR ---
rt notes 1336 Transport pt to OR for gastronomy tube placement. Transport pt via 15L BVM, saturating 99%. HR 76. no resp distress noted.
--- NOTE | 2023-02-11 13:40 | NUR ---
Pt out of unit for surgery
--- NOTE | 2023-02-11 14:27 | NUR ---
Wound Evaluation Attempted: Wound evaluation attempted, but unable to perform secondary to patient was in surgery in the operating room.
--- NOTE | 2023-02-11 15:30 | NUR ---
RT NOTES 1530 Pt back to ICU2. Transported pt via 15L BVM, immediately connected pt to vent (AC 18) post arrival to room. no distress noted. ETT secured and patent at 27cm LL. pt saturating 98%. FARIDEH Man at bedside.
[2023-02-11] MEDS ORDERED: fentaNYL CITRATE 250 MCG/5 ML AMP ONE (15:38)
[2023-02-11] MEDS ORDERED: BUPIVACAINE /PF 0.5% 30 ML VIAL ONE (15:38)
[2023-02-11] MEDS ORDERED: WATER FOR IRRIGATION,STERILE 1,000 ML IRRIG.SOLN IR ONE (15:38)
[2023-02-11] MEDS ORDERED: NS 1000 ML IV.SOLN IV ONE (15:38)
[2023-02-11] MEDS ORDERED: SEVOFLURANE 15 MIN GAS INH ONE (15:38)
[2023-02-11] MEDS ORDERED: ROCURONIUM BROMIDE 10 MG/ML (ZEMURON) ONE (15:38)
[2023-02-11] MEDS ORDERED: NS IRRIG SOLN 1000 ML IR ONE (15:38)
--- NOTE | 2023-02-11 15:40 | NUR ---
received pt from OR nurse Colindres, and Dr. Saenz, ABD dressing intact, ABD MALENA drain x1.
[2023-02-11] MEDS: MICAFUNGIN SODIUM 50 MG in NS 50 ML IV SCH (16:36)
--- NOTE | 2023-02-11 19:30 | NUR ---
PT RECVD FROM DAY SHIFT RN. PT INTUBATED, VENT SETTING FIO2 40, TIDAL VOLUME 500, PEEP 5. PT PRESENTS SEDATED WITH PROPOFOL @35MCG/KG/MIN, VSS, LONGORIA IN PLACE, PICC IN LEFT ARM
[2023-02-11 20:11] LABS: BILIRUBIN,URINE NEGATIVE (NEGATIVE); BLOOD, URINE 1+ (NEGATIVE); CLARITY/URINE CLEAR (CLEAR); COLOR,URINE YELLOW (YELLOW); GLUCOSE,URINE 3+ (NEGATIVE); KETONES,URINE NEGATIVE (NEGATIVE); LEUKOCYTE ESTERASE ,URINE NEGATIVE (NEGATIVE); NITRITE, URINE NEGATIVE (NEGATIVE); PH,URINE 5.5 (5.0-8.0); PROTEIN URINE TRACE (NEGATIVE); UROBILINOGEN,URINE 0.2 (0.2-1.0)
[2023-02-11 20:48] LABS: BACTERIA,URINE FEW /HPF (None Seen); MUCUS,URINE 1+ /LPF (None Seen); WBC,URINE 0-3 /HPF (0-3)
[2023-02-11] MEDS ORDERED: TPN CENTRAL IV SCH ×8 (21:00)
[2023-02-11] MEDS ORDERED: POTASSIUM ACETATE IV SCH ×8 (21:00)
[2023-02-11] MEDS ORDERED: MVI IV SCH ×8 (21:00)
[2023-02-11] MEDS ORDERED: K PHOS IV SCH ×8 (21:00)
[2023-02-11] MEDS ORDERED: [UNRECOGNIZED DRUG - OTHER] IV SCH ×8 (21:00)
[2023-02-11] MEDS ORDERED: NOREPINEPHRINE 4 MG/4 ML VIAL IV ONE ×2 (22:21→22:35)
--- NOTE | 2023-02-11 22:30 | NUR ---
PT PRESENTS HYPOTENSIVE, LEVO RESTARTED
[2023-02-11] MEDS: NOREPINEPHRINE BITARTRATE 16 MG in NS 234 ML IV PRN (23:47)
[2023-02-12] VITALS (32 sets, daily range): BP systolic 116–168
[2023-02-12] MEDS ORDERED: ALBUMIN HUMAN 25% 200 ML IV ONE ×2 (01:45→01:59)
--- NOTE | 2023-02-12 02:30 | NUR ---
TPN NOT AVAIL FROM PHARM. NOTIFIED, ORDERED D10 @ 50ML/HR
[2023-02-12] MEDS: ACETYLCYSTEINE 10% 4 ML VIAL (RT) INH SCH ×6 (03:00→23:45)
[2023-02-12] MEDS: IPRATROPIUM BROM 0.5 MG/2.5 ML VIAL.NEB (ATROVENT) INH SCH ×6 (03:00→23:36)
[2023-02-12] MEDS: ALBUTEROL SULFATE 0.083% 2.5 MG/3 ML VIAL.NEB INH PRN ×6 (03:00→23:36)
[2023-02-12] MEDS: DEXTROSE 10%-WATER 500 ML IV SCH ×2 (03:17→12:14)
[2023-02-12 04:06] LABS: COCCIDIOIDES AB IGG 0.1 IV (<=0.9); COCCIDIOIDES AB IGM 0.1 IV (<=0.9)
[2023-02-12] MEDS: PROPOFOL DRIP 100 ML IV PRN (06:02)
[2023-02-12] MEDS: HYDROCORTISONE SOD SUCC 100 MG/2 ML VIAL IVP SCH (06:07)
[2023-02-12 06:13] LABS: ANION GAP 9 (5-15); CALCIUM 9.6 mg/dL (8.4-11.0); CHLORIDE 107 mmol/L (98-107); CREATININE 0.73 mg/dL (0.55-1.30); GLUCOSE 266 mg/dL (70-99); PHOSPHORUS 3.3 mg/dL (2.7-4.5); UREA NITROGEN, BLOOD 29 mg/dL (8-21)
[2023-02-12 07:41] LABS: BASOPHILS # (AUTO) 0.1 K/uL (0.0-0.2); BASOPHILS % (AUTO) 0.3 % (0.0-2.0); EOSINOPHILS % (AUTO) 0.1 % (0.0-4.0); HEMATOCRIT 36.7 % (36-54); HEMOGLOBIN 11.7 g/dL (14.0-18.0); LYMPHOCYTES # (AUTO) 0.9 K/uL (1.0-5.5); LYMPHOCYTES % (AUTO) 4.4 % (20.5-51.5); MEAN CORPUSCULAR HEMOGLOBIN 29 pg (27-31); MEAN CORPUSCULAR HGB CONC 32 % (32-36); MEAN CORPUSCULAR VOLUME 91 fL (79.0-98.0); MONOCYTES # (AUTO) 0.8 K/uL (0.0-1.0); MONOCYTES % (AUTO) 4.3 % (1.7-9.3); NEUTROPHILS # (AUTO) 17.8 K/uL (1.8-7.7); NEUTROPHILS % (AUTO) 90.9 % (40.0-70.0); RED BLOOD CELL COUNT(AUTO) 4.04 MIL/uL (4.2-6.2); RED CELL DISTRIBUTION WIDTH 15.8 % (9.0-15.0); WHITE BLOOD COUNT (AUTO) 19.6 K/uL (4.8-10.8)
--- NOTE | 2023-02-12 08:00 | NUR ---
JOSEE FAIRBANKS RN AND SN FABRICIO ARE IN CHARGE OF THIS PATIENT. PATIENT IS SEDATED, INTUBATED. PLAN IS TO WEAN PATIENT THIS MORNING, HOPEFULLY TO EXTUBATION. VITAL SIGNS ARE STABLE. STOPPED LEVOPHED DRIP. FOR WEANING PURPOSES, STOPPED PROPOFOL DRIP ALSO. VITALS SIGNS ARE STABLE. PATIENT APPEARS IN 0 DISTRESS AT THIS TIME. AFEBRILE. FARIDEH ALBERTS AND SN MALENA.
--- NOTE | 2023-02-12 08:25 | NUR ---
RT NOTES Per order, vent to cpap 5 ps 10 which was coordinated with FARIDEH Cabrera. No immediate adverse reactions noted. Will monitor pt.
--- NOTE | 2023-02-12 09:00 | NUR ---
PATIENT SEDATION STOPPED. PATIENT FOLLOWS COMMANDS AT THIS TIME. DENIES PAIN AT NEW PEG SITE. ORDERED TUBE FEEDING FOR PATIENT AFTER SPEAKING TO DR. DANGELO, WHO OK'ED USE OF PEG. D/C'ED TPN. BP STABLE OFF LEVOPHED. PATIENT APPEARS IN NO DISTRESS AT THIS TIME. FARIDEH ALBERTS AND SN MALENA.
[2023-02-12] MEDS: INSULIN GLARGINE 100 UNITS/ML, 10 ML VIAL SUBCUT SCH ×2 (09:30→21:17)
[2023-02-12] MEDS: FAMOTIDINE PF 20 MG/2 ML VIAL IVP SCH (09:32)
--- NOTE | 2023-02-12 09:42 | NUR ---
Nutrition F/U RD reviewed pts current EMR including diet hx, physician notes, nursing notes, pertinent labs/meds/procedures, care trends and care activity. Subjective Information 02/04: TPN and lipids have been started. 02/05: Pt has become confused/agitated/on restraints 02/08: Pt intubated and transferred to ICU 02/11: PEG placed RD rounded to ICU and s/w primary RN. Pt was tolerating his CPAP well at time of visit. RN said that they will hopefully extubate him today. RN reports that pt now has PEG and they will begin feeding through it today. RD gave recommendations. RN reports that pt is diabetic and his sugars have been elevated. Pt is scheduled to be receiving TPN starting 2100 tonight. Pt is on D10@50mL/hr (provides 408 kcal). Per EMR review: abd soft, w/ active bowel sounds; Dany: 10; BP fluctuating between high and WNL (124/80 WNL); LABS 02/12: Na 145WNL, BG 266 H, K+ 4.2WnL, WBC 19.6 H. Current Diet Order/Nutrition Support NPO x 2 days & TPN: D30, AA8.5% @ 70mL/hr via central line TPN Provides: 1142 kcal, 71 g PRO, total volume 1680mL; GIR: 2.5 mg/kg/min % PO intake NA Last BM 02/07 x 2 Estimated Energy Expenditure (kcals/day) 1657 kcal (PSU 2003: vent/ICU. MSJ 1405, Tmax 37, Vetot 11.0) Estimated Protein Required (g/day) 105-140 g (1.5-2 g/kg CBW d/t wounds, CA) Estimated Fluid Required (l/day) 1.6L (1mL/kcal maintenance) Problem/Etiology/Signs/Symptoms * Increased energy and protein utilization r/t metabolic demands AEB estimated nutritional needs for wound healing (ongoing) * Suboptimal nutritional intakes R/T dysphagia AEB strict NPO order, TPN order (resolved) NEW Expected Outcomes/Goals EN tolerated at goal rate, EN provides >95% estimated nutritional needs, improvements in skin integrity, nutrition-related labs trending WNL, weight maintenance, BM q 1-3 days Dietitian Recommendations * Initiate Glucerna 1.5 @ 45mL/hr (goal) via PEG Provides: 1620 kcal, 89g PRO, 820 mL free water Meets:98% of est kcal, 85% of lower est PRO, 51% of est fluid needs * Consider FWF 200 mL q6h, or per MD rec * DC TPN when EN is running * If/when pt is extubated/off propofol, please contact RD to re-assess nutrient needs Follow up * High risk: see pt in 2-3 days GS, MPH, RD
--- NOTE | 2023-02-12 09:44 | NUR ---
Dietitian Recommendations * Initiate Glucerna 1.5 @ 45mL/hr (goal) via PEG Provides: 1620 kcal, 89g PRO, 820 mL free water Meets:98% of est kcal, 85% of lower est PRO, 51% of est fluid needs * Consider FWF 200 mL q6h, or per MD rec * DC TPN when EN is running * If/when pt is extubated/off propofol, please contact RD to re-assess nutrient needs GS, MPH, RD Please refer to Nutrition F/U for further details. Thanks!
[2023-02-12 10:58] LABS: BASOPHILS % (AUTO) 0.1 % (0.0-2.0); EOSINOPHILS % (AUTO) 0.2 % (0.0-4.0); HEMATOCRIT 32.6 % (36-54); HEMOGLOBIN 10.3 g/dL (14.0-18.0); LYMPHOCYTES # (AUTO) 0.5 K/uL (1.0-5.5); LYMPHOCYTES % (AUTO) 3.4 % (20.5-51.5); MEAN CORPUSCULAR HEMOGLOBIN 29 pg (27-31); MEAN CORPUSCULAR HGB CONC 32 % (32-36); MEAN CORPUSCULAR VOLUME 91 fL (79.0-98.0); MONOCYTES # (AUTO) 0.4 K/uL (0.0-1.0); MONOCYTES % (AUTO) 2.9 % (1.7-9.3); NEUTROPHILS # (AUTO) 12.5 K/uL (1.8-7.7); NEUTROPHILS % (AUTO) 93.4 % (40.0-70.0); RED BLOOD CELL COUNT(AUTO) 3.59 MIL/uL (4.2-6.2); RED CELL DISTRIBUTION WIDTH 15.9 % (9.0-15.0); WHITE BLOOD COUNT (AUTO) 13.4 K/uL (4.8-10.8)
[2023-02-12 11:14] LABS: PLATELET COUNT (AUTO) 77 K/uL (130-430)
--- NOTE | 2023-02-12 11:15 | NUR ---
RT NOTES end CPAP Dr Vickey matos, orders vent back to AC. State he'll have to talk to family if they're willing to do trial extubation. For now, continue daily SBT.
[2023-02-12] MEDS: INSULIN REGULAR, HUMAN 100 UNITS/ML, 3 ML VIAL (humuLIN R) SUBCUT PRN (12:01)
[2023-02-12 12:31] LABS: PLATELET COUNT (AUTO) 91 K/uL (130-430)
[2023-02-12] MEDS: CEFEPIME 1 GM in D5W 50 ML IV SCH (12:44)
[2023-02-12] MEDS: MICAFUNGIN SODIUM 50 MG in NS 50 ML IV SCH (14:18)
[2023-02-12] MEDS: ACETAMINOPHEN 325 MG TABLET PO PRN (15:10)
--- NOTE | 2023-02-12 19:10 | NUR ---
Received report from PAMELA Cabrera SENIOR PRODUCT ENGINEER. Questions answered.
--- NOTE | 2023-02-12 21:08 | NUR ---
BS= 124mg/dl, Check before Giving Lantus 10units SQ as ordered.
[2023-02-13] VITALS (34 sets, daily range): BP systolic 109–162
--- NOTE | 2023-02-13 01:05 | NUR ---
BS= 109mg/dl, NO Coverage needed.
[2023-02-13] MEDS: DEXTROSE 10%-WATER 500 ML IV SCH ×3 (01:58→17:38)
[2023-02-13] MEDS: ALBUTEROL SULFATE 0.083% 2.5 MG/3 ML VIAL.NEB INH PRN ×4 (03:10→15:10)
[2023-02-13] MEDS: IPRATROPIUM BROM 0.5 MG/2.5 ML VIAL.NEB (ATROVENT) INH SCH ×4 (03:10→15:11)
[2023-02-13] MEDS: ACETYLCYSTEINE 10% 4 ML VIAL (RT) INH SCH ×4 (03:20→15:10)
--- NOTE | 2023-02-13 04:30 | NUR ---
Total care given, pericare done. Change Gown, linen & Jeremiahks. Made Clean, Dry & comfortable, Tolerated well.
--- NOTE | 2023-02-13 06:23 | NUR ---
BS= 122mg/dl, NO Coverage needed.
--- NOTE | 2023-02-13 07:20 | NUR ---
Report endorsed to PAMELA Lyn PLYWOOD SCARFER TENDER. All questions answered. Patient on ETT to NAHUM Torres Foley.
--- NOTE | 2023-02-13 07:54 | NUR ---
RT NOTES Per daily SBT, vent to CPAP 5 PS 10. No adverse reactions noted. Will monitor pt. FARIDEH Lyn made aware.
--- NOTE | 2023-02-13 09:25 | NUR ---
RT NOTES end cpap due to increased work of breathing, vent back to AC. Rn Riki made aware.
[2023-02-13] MEDS: FAMOTIDINE PF 20 MG/2 ML VIAL IVP SCH (09:52)
[2023-02-13] MEDS: INSULIN GLARGINE 100 UNITS/ML, 10 ML VIAL SUBCUT SCH ×2 (09:53→21:10)
[2023-02-13] MEDS: MORPHINE 2 MG/ML INJ. SYRINGE IVP PRN (10:04)
[2023-02-13] MEDS: CEFEPIME 1 GM in D5W 50 ML IV SCH (13:15)
[2023-02-13] MEDS: MICAFUNGIN SODIUM 50 MG in NS 50 ML IV SCH (14:00)
--- NOTE | 2023-02-13 16:10 | NUR ---
RT NOTES Dr Vickey matos, made aware of increased WOB while on CPAP < 2 HOURS. Also mentioned that pt did not appear to have cough reflex when sxn via ETT, but noted during oral sxn. Dr said to continue daily CPAP trial.
--- NOTE | 2023-02-13 17:11 | NUR ---
RT NOTES ett Oral sxn done prior to cuff deflation. Per order, ETT was advanced 2 cm down, secured at 28cm. Bilat. b/s/chest rise noted. No resistance when sxn via ETT. Rn Riki at bedside.
--- NOTE | 2023-02-13 19:20 | NUR ---
Report received from PAMELA Lyn MICROARRAY OPERATIONS VICE PRESIDENT.
--- NOTE | 2023-02-13 21:10 | NUR ---
BS= 143mg/dl, Lantus 10 units SQ was Given.
[2023-02-14] VITALS (29 sets, daily range): BP systolic 72–171
--- NOTE | 2023-02-14 00:18 | NUR ---
BS= 126mg/dl, NO Coverage needed.
[2023-02-14] MEDS: IPRATROPIUM BROM 0.5 MG/2.5 ML VIAL.NEB (ATROVENT) INH SCH ×8 (02:31→23:23)
[2023-02-14] MEDS: ACETYLCYSTEINE 10% 4 ML VIAL (RT) INH SCH ×8 (02:32→23:23)
--- NOTE | 2023-02-14 04:30 | NUR ---
Total care given, pericare done, Change Gown, Linen & Chaulks, Made clean, Dry & comfortable. Tolerated well. Went to Sleep quietly. Looks comfortable.
[2023-02-14 05:01] LABS: BASOPHILS % (AUTO) 0.3 % (0.0-2.0); EOSINOPHILS # (AUTO) 0.2 K/uL (0.0-0.4); EOSINOPHILS % (AUTO) 1.6 % (0.0-4.0); HEMATOCRIT 33.5 % (36-54); HEMOGLOBIN 10.8 g/dL (14.0-18.0); LYMPHOCYTES # (AUTO) 0.9 K/uL (1.0-5.5); LYMPHOCYTES % (AUTO) 7.5 % (20.5-51.5); MEAN CORPUSCULAR HEMOGLOBIN 29 pg (27-31); MEAN CORPUSCULAR HGB CONC 32 % (32-36); MEAN CORPUSCULAR VOLUME 90 fL (79.0-98.0); MONOCYTES # (AUTO) 0.5 K/uL (0.0-1.0); NEUTROPHILS # (AUTO) 10.4 K/uL (1.8-7.7); NEUTROPHILS % (AUTO) 86.6 % (40.0-70.0); PLATELET COUNT (AUTO) 62 K/uL (130-430); RED BLOOD CELL COUNT(AUTO) 3.71 MIL/uL (4.2-6.2); RED CELL DISTRIBUTION WIDTH 16.6 % (9.0-15.0)
[2023-02-14 05:22] LABS: ANION GAP 10 (5-15); CALCIUM 8.8 mg/dL (8.4-11.0); CHLORIDE 103 mmol/L (98-107); CREATININE 0.66 mg/dL (0.55-1.30); GLUCOSE 114 mg/dL (70-99); UREA NITROGEN, BLOOD 22 mg/dL (8-21)
--- NOTE | 2023-02-14 06:31 | NUR ---
BS= 122 mg/dl, NO Coverage needed per Sliding Scale protocol ordered.
--- NOTE | 2023-02-14 07:17 | NUR ---
Report given to PAMELA Lyn FISH AND WILDLIFE BIOLOGIST. All questions answered. Patient on ETT to NAHUM Torres PICC= D10W @50ml/hr, Lydia.
[2023-02-14] MEDS: FAMOTIDINE PF 20 MG/2 ML VIAL IVP SCH (08:15)
[2023-02-14] MEDS: INSULIN GLARGINE 100 UNITS/ML, 10 ML VIAL SUBCUT SCH ×2 (08:17→21:49)
[2023-02-14] MEDS: ALBUTEROL SULFATE 0.083% 2.5 MG/3 ML VIAL.NEB INH PRN ×4 (11:21→23:23)
[2023-02-14] MEDS: CEFEPIME 1 GM in D5W 50 ML IV SCH (12:14)
[2023-02-14] MEDS: INSULIN REGULAR, HUMAN 100 UNITS/ML, 3 ML VIAL (humuLIN R) SUBCUT PRN (12:15)
[2023-02-14] MEDS ORDERED: ENOXAPARIN SODIUM 40 MG/0.4 ML SYRINGE SUBCUT ONE (12:45)
[2023-02-14] MEDS: DEXTROSE 10%-WATER 500 ML IV SCH (13:24)
[2023-02-14] MEDS: MICAFUNGIN SODIUM 50 MG in NS 50 ML IV SCH (13:24)
[2023-02-14] MEDS: ACETAMINOPHEN 325 MG TABLET PO PRN (17:51)
[2023-02-14] MEDS ORDERED: D5/0.45 NS 1,000 ML IV ONE (19:15)
[2023-02-15] VITALS (30 sets, daily range): BP systolic 78–153
[2023-02-15] MEDS: ACETYLCYSTEINE 10% 4 ML VIAL (RT) INH SCH ×6 (03:51→23:28)
[2023-02-15] MEDS: ALBUTEROL SULFATE 0.083% 2.5 MG/3 ML VIAL.NEB INH PRN ×5 (03:51→23:28)
[2023-02-15] MEDS: IPRATROPIUM BROM 0.5 MG/2.5 ML VIAL.NEB (ATROVENT) INH SCH ×6 (03:51→23:28)
[2023-02-15] MEDS: INSULIN REGULAR, HUMAN 100 UNITS/ML, 3 ML VIAL (humuLIN R) SUBCUT PRN ×2 (06:17→12:02)
[2023-02-15 06:48] LABS: INR 1.1 (0.80-1.20); PROTHROMBIN TIME 11.4 SECS (9.5-12.5)
--- NOTE | 2023-02-15 08:00 | NUR ---
PATIENT IN BED, NO SIGNS OR SYMPTOMS OF DISTRESS. PATIENT IS ALERT AND FOLLOWING COMMANDS. INTUBATED AC 18 TV 500 FIO2 30% PEEP5. LEFT UPPER ARM PICC DOUBLE LUMEN RUNNING TKO, PRECEDEX, AND LEVOPHED. ABDOMINAL DRESSING REINFORCED WITH DRIED DRAINAGE NOTED. GLUCERNA 1.2 RUNNING 45ML/HR. MALENA DRAIN TO RIGHT LOWER ABDOMEN WITH 30ML SEROUS DRAINAGE. MOVES ALL EXTREMITIES. PERRLA. LONGORIA SECURED TO RIGHT LOWER EXTREMITY AND DRAINING AD URINE TO GRAVITY. BED IN LOWEST LOCKED POSITION, CALL LIGHT WITHIN REACH, SAFETY MEASURES IN PLACE.
[2023-02-15 08:04] LABS: ANION GAP 8 (5-15); CALCIUM 8.8 mg/dL (8.4-11.0); CHLORIDE 100 mmol/L (98-107); CREATININE 0.74 mg/dL (0.55-1.30); GLUCOSE 217 mg/dL (70-99); UREA NITROGEN, BLOOD 22 mg/dL (8-21)
[2023-02-15 08:10] LABS: BASOPHILS # (AUTO) 0.2 K/uL (0.0-0.2); BASOPHILS % (AUTO) 0.9 % (0.0-2.0); EOSINOPHILS # (AUTO) 0.4 K/uL (0.0-0.4); EOSINOPHILS % (AUTO) 2.3 % (0.0-4.0); HEMOGLOBIN 10.2 g/dL (14.0-18.0); LYMPHOCYTES # (AUTO) 1.2 K/uL (1.0-5.5); LYMPHOCYTES % (AUTO) 7.4 % (20.5-51.5); MEAN CORPUSCULAR HEMOGLOBIN 29 pg (27-31); MEAN CORPUSCULAR HGB CONC 32 % (32-36); MEAN CORPUSCULAR VOLUME 91 fL (79.0-98.0); MONOCYTES # (AUTO) 0.7 K/uL (0.0-1.0); MONOCYTES % (AUTO) 4.3 % (1.7-9.3); NEUTROPHILS # (AUTO) 13.8 K/uL (1.8-7.7); NEUTROPHILS % (AUTO) 85.1 % (40.0-70.0); RED BLOOD CELL COUNT(AUTO) 3.52 MIL/uL (4.2-6.2); RED CELL DISTRIBUTION WIDTH 16.1 % (9.0-15.0); WHITE BLOOD COUNT (AUTO) 16.2 K/uL (4.8-10.8)
[2023-02-15 08:42] LABS: PLATELET COUNT (AUTO) 136 K/uL (130-430)
[2023-02-15] MEDS: FAMOTIDINE PF 20 MG/2 ML VIAL IVP SCH (08:57)
[2023-02-15] MEDS: INSULIN GLARGINE 100 UNITS/ML, 10 ML VIAL SUBCUT SCH ×2 (08:58→22:38)
[2023-02-15] MEDS: ENOXAPARIN SODIUM 40 MG/0.4 ML SYRINGE SUBCUT SCH (08:59)
[2023-02-15] MEDS: CEFEPIME 1 GM in D5W 50 ML IV SCH (13:10)
[2023-02-15] MEDS: MICAFUNGIN SODIUM 50 MG in NS 50 ML IV SCH (13:53)
--- NOTE | 2023-02-15 14:31 | NUR ---
RT NOTES 1350 PLACED PT ON CPAP5 PS10 TRIAL PER DR WEINER. PT SAT98% RR32.WILL MONITOR, RN AWARE. Addendum: 02/15/23 at 1437 by Paige Caruso RT Amended: Links added.
--- NOTE | 2023-02-15 16:35 | NUR ---
SPOKE WITH DR ISAEL DAHL. NOTIFIED THAT DRESSING HAS NOT BEEN CHANGED SINCE G TUBE PLACEMENT ON ABDOMEN AND MALENA DRAIN IS STILL IN PLACE. DR DAHL ORDERED TO REMOVE DRESSINGS ON ABDOMEN AND SUPPORT OPEN SPACES IF NEEDED WITH 4X4 GAUZE AND TO REMOVE MALENA DRAIN AND APPLY 4X4 GAUZE DRESSING TO SITE.
--- NOTE | 2023-02-15 17:31 | NUR ---
RT NOTES 1630 PLACED PT BACK ON AC. PT TOLERATED CPAP TRIAL WELL. Addendum: 02/15/23 at 1732 by Paige Caruso RT Amended: Links added.
--- NOTE | 2023-02-15 18:52 | NUR ---
HIGH ALERT NOTE: Called Dr. COFFEY back at identified within the medical roster to verify physician authenticity. MORPHINE 1MG IVP FOR MODERATE PAIN Q4HP. READ BACK VERIFIED.
[2023-02-15] MEDS ORDERED: NALOXONE HCL 0.4 MG/ML AMP (NARCAN) IVP PRN (19:00)
[2023-02-15] MEDS ORDERED: MORPHINE 2 MG/ML INJ. SYRINGE IVP PRN (19:00)
--- NOTE | 2023-02-15 19:18 | NUR ---
PATIENT ORDERED TO GO HOME ON HOSPICE BY DR PEREZ. HOSPICE GROUP IS [facility]. SAYRA INDUSTRIAL HYGIENE TECHNICIAN AT [phone] ORDERED TO DISCHARGE PATIENT WITH FLEXISEAL, NGT, AND LONGORIA CATHETER BUT ORDERED TO REMOVED PICC LINE. HEPARIN DRIP STOPPED. DISCHARGE PACKET COMPLETED. ENDORSED TO TANKER SERVICEMAN FARIDEH BAL TO DISCUSS DISCHARGE PACKET WITH AND TO REMOVE PICC LINE. 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 Addendum: 02/15/23 at 1924 by [facility], FARIDEH GONG PLEASE DISREGARD. WRONG PATIENT.
--- NOTE | 2023-02-15 22:15 | NUR ---
CONSULTATION PAGED/CALLED Reason for Consultation: Chest Pain Person Who was Notified: exchange Consulting Physician: Dr Murphy Oil Field Laborer Specialty: Cardiology Ordering Physician: Dr Boston
--- NOTE | 2023-02-15 23:34 | NUR ---
Nutrition F/U RD reviewed pts current EMR including diet hx, physician notes, nursing notes, pertinent labs/meds/procedures, care trends and care activity. Subjective Information 02/04: TPN and lipids have been started. 02/05: Pt has become confused/agitated/on restraints 02/08: Pt intubated and transferred to ICU 02/11: PEG placed 02/15: Patient continues sedated/intubated on assist control; tolerating tube feeding well RD rounded to ICU and s/w primary RN. Pt was unable to be extubated; on assist control. RN reports patient is tolerating tube feeding well via gastrostomy with FWF 50 mL q [address] witnessed EN running Glucerna 1.2 @ 45 ml/hr. No BM documented since 02/07, RN made aware. Per EMR review: abd soft, w/ active bowel sounds; Dany: 13 (improved); BP low (115/57 L); pitting edema 1+; bed weight 97.4 kg (may be inaccurate due to bed linens and equipment). Patient not meeting protein needs with Glucerna 1.2 @ 45 ml/hr. RD made nurse aware of RD recommendations. LABS: (02/15/23) Hgb 10.2L, Hct 32L, BUN 22H, Gluc 217H, POC Gluc 155,194,118H (02/12/23) Na 145WNL, BG 266 H, K+ 4.2WnL, WBC 19.6 H. Current Diet Order/Nutrition Support NPO x 9 days & G-tube feed: Glucerna 1.2 @ 45 mL/hr (propofol running at 2.096 mL/hr) with FWF 50 mL q 6 hr. Enteral nutrition Provides: 1296 kcal (with propofol 1351 kcal/day) , 65 g PRO/day, total volume 1080 mL/day Meets: 82% of estimated energy needs; 62% of lower end estimated protein needs % PO intake NA Last BM 02/07 x 2 Estimated Energy Expenditure (kcals/day) 1657 kcal ([facility]U 2002: vent/ICU. MSJ 1405, Tmax 37, Vetot 11.0) Estimated Protein Required (g/day) 105-140 g (1.5-2 g/kg CBW d/t wounds, CA) Estimated Fluid Required (l/day) 1.6L (1mL/kcal maintenance) Problem/Etiology/Signs/Symptoms * Increased energy and protein utilization r/t metabolic demands AEB estimated nutritional needs for wound healing (ongoing) * Suboptimal nutritional intakes R/T current EN Dx, enteral nutrition order does not meet protein needs x2 days. NEW Expected Outcomes/Goals EN tolerated at goal rate, EN provides at least 75% estimated nutritional needs, improvements in skin integrity, nutrition-related labs trending WNL, weight maintenance, BM q 1-3 days Dietitian Recommendations * Recommend Glucerna 1.5 @ 40mL/hr (goal) via PEG Provides: 1440 kcal, 79g PRO, 729 mL free water Meets: 87% of estimated energy needs (90% with propofol); 75% of lower estimated protein needs; 46% of est fluid needs * Continue 50 mL free water flush q 6, or per MD rec * If/when pt is extubated/off propofol, please contact RD to re-assess nutrient needs Follow up * High risk: see pt in 2-3 days
--- NOTE | 2023-02-15 23:40 | NUR ---
RD Recommendations * Recommend Glucerna 1.5 @ 40mL/hr (goal) via PEG Provides: 1440 kcal, 79g PRO, 729 mL free water Meets: 87% of estimated energy needs (90% with propofol); 75% of lower estimated protein needs; 46% of est fluid needs * Continue 50 mL free water flush q 6, or per MD rec * If/when pt is extubated/off propofol, please contact RD to re-assess nutrient needs Please refer to RD F/U Assessment (02/15/23) for details CAROL BARNES
[2023-02-16] VITALS (33 sets, daily range): BP systolic 87–133
[2023-02-16] MEDS: INSULIN REGULAR, HUMAN 100 UNITS/ML, 3 ML VIAL (humuLIN R) SUBCUT PRN ×2 (00:13→06:22)
[2023-02-16] MEDS: IPRATROPIUM BROM 0.5 MG/2.5 ML VIAL.NEB (ATROVENT) INH SCH ×6 (03:14→23:25)
[2023-02-16] MEDS: ALBUTEROL SULFATE 0.083% 2.5 MG/3 ML VIAL.NEB INH PRN ×4 (03:14→14:51)
[2023-02-16] MEDS: ACETYLCYSTEINE 10% 4 ML VIAL (RT) INH SCH ×6 (03:15→23:25)
[2023-02-16 05:55] LABS: BASOPHILS % (AUTO) 0.3 % (0.0-2.0); EOSINOPHILS # (AUTO) 0.5 K/uL (0.0-0.4); EOSINOPHILS % (AUTO) 3.5 % (0.0-4.0); HEMATOCRIT 29.9 % (36-54); HEMOGLOBIN 9.7 g/dL (14.0-18.0); LYMPHOCYTES # (AUTO) 0.9 K/uL (1.0-5.5); LYMPHOCYTES % (AUTO) 6.8 % (20.5-51.5); MEAN CORPUSCULAR HEMOGLOBIN 30 pg (27-31); MEAN CORPUSCULAR HGB CONC 33 % (32-36); MEAN CORPUSCULAR VOLUME 91 fL (79.0-98.0); MONOCYTES # (AUTO) 0.7 K/uL (0.0-1.0); MONOCYTES % (AUTO) 5.2 % (1.7-9.3); NEUTROPHILS # (AUTO) 11.1 K/uL (1.8-7.7); NEUTROPHILS % (AUTO) 84.2 % (40.0-70.0); RED CELL DISTRIBUTION WIDTH 16.2 % (9.0-15.0); WHITE BLOOD COUNT (AUTO) 13.2 K/uL (4.8-10.8)
[2023-02-16 06:16] LABS: ANION GAP 6 (5-15); CALCIUM 8.3 mg/dL (8.4-11.0); CHLORIDE 101 mmol/L (98-107); CREATININE 0.59 mg/dL (0.55-1.30); GLUCOSE 157 mg/dL (70-99); UREA NITROGEN, BLOOD 16 mg/dL (8-21)
[2023-02-16 07:18] LABS: PLATELET COUNT (AUTO) 92 K/uL (130-430)
[2023-02-16] MEDS: FAMOTIDINE PF 20 MG/2 ML VIAL IVP SCH (08:15)
[2023-02-16] MEDS: INSULIN GLARGINE 100 UNITS/ML, 10 ML VIAL SUBCUT SCH ×2 (08:18→21:00)
[2023-02-16] MEDS: ENOXAPARIN SODIUM 40 MG/0.4 ML SYRINGE SUBCUT SCH (08:18)
--- NOTE | 2023-02-16 08:19 | NUR ---
RT NOTES start cpap Per daily SBT, coordinated with FARIDEH Rivera, vent to CPAP 5 PS 10. No adverse reactions noted. Will monitor pt
--- NOTE | 2023-02-16 10:42 | NUR ---
PATIENT REPORTING 8/10 LEFT SIDED CHEST PAIN THAT RADIATES UP THE CHEST BUT NOT TO THE BACK. HOSSEIN PA AT BEDSIDE AND AWARE OF CHEST PAIN. ORDERED STAT EKG AND ECHO. EKG BEING PERFORMED NOW WITH KUVAJANIAA PRESENT.
--- NOTE | 2023-02-16 10:53 | NUR ---
PATIENT CHEST PAIN IS GONE. PER KUVADIA PA THE EKG IS NORMAL.
--- NOTE | 2023-02-16 11:10 | NUR ---
RT NOTES Vent back to AC
--- NOTE | 2023-02-16 11:40 | NUR ---
RT NOTES Dr Allyson matos, made aware of CPAP for 3 hours, no cough reflex noted when sxn via ETT. Dr wants cpap for 30 minutes tomorrow, then abg for possible extubation.
[2023-02-16] MEDS ORDERED: METOPROLOL SUCCINATE 25 MG TAB.SR.24H (TOPROL XL) PO ONE (12:20)
[2023-02-16] MEDS: CEFEPIME 1 GM in D5W 50 ML IV SCH (13:05)
[2023-02-16] MEDS ORDERED: METOPROLOL TARTRATE 25 MG TABLET PO ONE (14:00)
[2023-02-16] MEDS: MICAFUNGIN SODIUM 50 MG in NS 50 ML IV SCH (14:15)
[2023-02-16] MEDS: SILDENAFIL CITRATE 20 MG TABLET PO SCH ×2 (14:19→21:03)
--- NOTE | 2023-02-16 14:48 | NUR ---
RT NOTES Called to bedside, pt. appears restless, uncomfortable, per Rn, precedex was increased. HHN tx given.
--- NOTE | 2023-02-16 17:23 | NUR ---
RT NOTES Called to bedside, per RN pt pulled on ETT, she advanced it back. Appears to be in place, good volume return, bilat. b/s/chest rise noted, no resistance when sxn via ETT, Sat. 95%, recommended more sedation or soft restraints.
[2023-02-16] MEDS ORDERED: LORazepam 2 MG/ML VIAL IVP PRN (18:30)
--- NOTE | 2023-02-16 19:00 | NUR ---
HIGH ALERT NOTE: Called Dr. BULLARD back at [facility] identified within the medical roster to verify physician authenticity. FENTANYL IVP AND ATIVAN IVP ORDERED PER DR BULLARD AFTER NOTIFIED OF PATIENT ATTEMPT AT SELF EXTUBATION AND TACHYPNEA. READ BACK VERIFIED.
--- NOTE | 2023-02-16 19:11 | NUR ---
HIGH ALERT NOTE: Called Dr. COFFEY back at [facility] identified within the medical roster to verify physician authenticity. LANTUS 10 UNITS BID CHANGED TO LANTUS [address] BULLARD ORDER AFTER NOTIFIED OF BG 61, D50% 1 AMP IVP GIVEN, AND REPEAT BG IS 153. READBACK VERIFIED.
--- NOTE | 2023-02-16 19:20 | NUR ---
Received patient after report and assumed care. Patient awake and evidently in discomfort and having difficulty tolerating ventilator as patient's respiratory rate ranges between 30-35. Patient being repositioned at this time but still in distress reporting not getting enough air. Titrating precedex not effective; Fentanyl IVP will be used to allow patient to relax and to stop fighting the vent. will continue to monitor patient and medication effectiveness for distress and pain.
[2023-02-16] MEDS: fentaNYL CITRATE/PF 100 MCG/2 ML AMP IVP PRN ×2 (19:35→22:45)
[2023-02-17] VITALS (38 sets, daily range): BP systolic 95–137
[2023-02-17] MEDS: fentaNYL CITRATE/PF 100 MCG/2 ML AMP IVP PRN ×2 (01:50→03:55)
[2023-02-17] MEDS: ACETYLCYSTEINE 10% 4 ML VIAL (RT) INH SCH ×5 (03:05→19:45)
[2023-02-17] MEDS: IPRATROPIUM BROM 0.5 MG/2.5 ML VIAL.NEB (ATROVENT) INH SCH ×5 (03:05→19:45)
[2023-02-17 05:51] LABS: BASOPHILS % (AUTO) 0.2 % (0.0-2.0); EOSINOPHILS # (AUTO) 0.5 K/uL (0.0-0.4); EOSINOPHILS % (AUTO) 4.2 % (0.0-4.0); HEMATOCRIT 31.4 % (36-54); HEMOGLOBIN 10.1 g/dL (14.0-18.0); LYMPHOCYTES # (AUTO) 0.7 K/uL (1.0-5.5); LYMPHOCYTES % (AUTO) 6.4 % (20.5-51.5); MEAN CORPUSCULAR HEMOGLOBIN 29 pg (27-31); MEAN CORPUSCULAR HGB CONC 32 % (32-36); MEAN CORPUSCULAR VOLUME 91 fL (79.0-98.0); MONOCYTES # (AUTO) 0.8 K/uL (0.0-1.0); MONOCYTES % (AUTO) 6.8 % (1.7-9.3); NEUTROPHILS # (AUTO) 9.4 K/uL (1.8-7.7); NEUTROPHILS % (AUTO) 82.4 % (40.0-70.0); RED BLOOD CELL COUNT(AUTO) 3.46 MIL/uL (4.2-6.2); WHITE BLOOD COUNT (AUTO) 11.4 K/uL (4.8-10.8)
[2023-02-17 07:03] LABS: ANION GAP 8 (5-15); CALCIUM 8.6 mg/dL (8.4-11.0); CHLORIDE 100 mmol/L (98-107); CREATININE 0.59 mg/dL (0.55-1.30); GLUCOSE 150 mg/dL (70-99); UREA NITROGEN, BLOOD 17 mg/dL (8-21)
[2023-02-17] MEDS: ALBUTEROL SULFATE 0.083% 2.5 MG/3 ML VIAL.NEB INH PRN ×3 (07:13→15:18)
--- NOTE | 2023-02-17 08:04 | NUR ---
RT NOTES Noy Huerta to call when to start CPAP.
[2023-02-17] MEDS ORDERED: METOPROLOL TARTRATE 25 MG TABLET PO SCH (09:00)
[2023-02-17] MEDS ORDERED: METOPROLOL SUCCINATE 25 MG TAB.SR.24H (TOPROL XL) PO SCH (09:00)
[2023-02-17 09:01] LABS: PLATELET COUNT (AUTO) 142 K/uL (130-430)
[2023-02-17] MEDS: FAMOTIDINE PF 20 MG/2 ML VIAL IVP SCH (09:38)
[2023-02-17] MEDS: SILDENAFIL CITRATE 20 MG TABLET PO SCH ×2 (09:53→16:06)
[2023-02-17] MEDS: ENOXAPARIN SODIUM 40 MG/0.4 ML SYRINGE SUBCUT SCH (09:53)
[2023-02-17] MEDS: INSULIN GLARGINE 100 UNITS/ML, 10 ML VIAL SUBCUT SCH (09:57)
--- NOTE | 2023-02-17 11:05 | NUR ---
RT NOTES per Rn, ok to start cpap. no adverse reactions noted. pt is alert and responding appropriately.
--- NOTE | 2023-02-17 11:10 | NUR ---
RT NOTES Dr Allyson matos, made aware of abnormal b.s. stated no extubation today, but cont. cpap for 2 hours. Cont. daily cpap, Dr will reassess tomorrow.
--- NOTE | 2023-02-17 11:17 | NUR ---
RT NOTES Vent back to AC for bronchoscopy.
[2023-02-17] MEDS ORDERED: MIDAZOLAM HCL 2 MG/2 ML VIAL (VERSED) ONE (11:19)
[2023-02-17] MEDS ORDERED: MIDAZOLAM HCL 5 MG/5 ML VIAL IVP ONE (11:30)
--- NOTE | 2023-02-17 11:45 | NUR ---
RT NOTES Assisted with bronchoscopy with a glidescope. FIO2 TO 100% during procedure which pt. tolerated well. a/w remains secure/patent. bilat. b/s/chest rise noted. sputum was endorsed to lab. FIO2 back to 0.30.
--- NOTE | 2023-02-17 13:55 | NUR ---
RT NOTES Vent to cpap 5 ps 10 per daily SBT order, rn aware
[2023-02-17] MEDS: METHYLPREDNISOLONE SOD SUCC 40 MG/ML VIAL IVP SCH ×2 (14:07→18:27)
[2023-02-17] MEDS: MICAFUNGIN SODIUM 50 MG in NS 50 ML IV SCH (14:08)
[2023-02-17] MEDS: CEFEPIME 1 GM in D5W 50 ML IV SCH (14:08)
[2023-02-17] MEDS: INSULIN REGULAR, HUMAN 100 UNITS/ML, 3 ML VIAL (humuLIN R) SUBCUT PRN (14:10)
--- NOTE | 2023-02-17 14:26 | NUR ---
pt packet information given to ICU Nurse
--- NOTE | 2023-02-17 15:55 | NUR ---
RT NOTES Vent back to YANIV rn aware. Pt tolerated 2 hours of CPAP trial.
--- NOTE | 2023-02-17 21:01 | NUR ---
TRANSPORT HERE TO TRANSFER PATIENT TO [facility]. PATIENT TRANSFERED TO [facility] AND PLACED ON 3RD CONSTITUTION PARTY VENT/MONITORS WITHOUT INCIDENT.
== END 2023-02-17 20:30 | DRG 853 ==
LOC: STU 23:00 → SIC 02-07 14:02
PROVIDERS: ADMIT Specialist; ATTEND Specialist
PROC: 5A1955Z Respiratory Ventilation, Greater than 96 Consecutive Hours (ICD-10-PCS; principal; 2023-02-07)
PROC: 0BH17EZ Insertion of Endotracheal Airway into Trachea, Via Natural or Artificial Opening (ICD-10-PCS; 2023-02-07)
PROC: 5A0935A Assistance with Respiratory Ventilation, Less than 24 Consecutive Hours, High Flow/Velocity Cannula (ICD-10-PCS; 2023-02-07)
PROC: 0DN60ZZ Release Stomach, Open Approach (ICD-10-PCS; 2023-02-11)
PROC: 0DH63UZ Insertion of Feeding Device into Stomach, Percutaneous Approach (ICD-10-PCS; 2023-02-11)
DX: A41.89 Other specified sepsis (principal); J69.0 Pneumonitis due to inhalation of food and vomit; J96.01 Acute respiratory failure with hypoxia; R65.21 Severe sepsis with septic shock; C15.9 Malignant neoplasm of esophagus, unspecified; C79.9 Secondary malignant neoplasm of unspecified site; J98.11 Atelectasis; R13.10 Dysphagia, unspecified; J44.9 Chronic obstructive pulmonary disease, unspecified; I50.9 Heart failure, unspecified; I25.2 Old myocardial infarction; E78.5 Hyperlipidemia, unspecified; Z20.822 Contact with and (suspected) exposure to COVID-19; D72.823 Leukemoid reaction; E11.9 Type 2 diabetes mellitus without complications; I25.10 Atherosclerotic heart disease of native coronary artery without angina pectoris; Z85.01 Personal history of malignant neoplasm of esophagus; Z87.891 Personal history of nicotine dependence; Z95.1 Presence of aortocoronary bypass graft
CPT/HCPCS: 36415; 36600; 71045; 80048; 80053; 81000; 82140; 82803; 82962; 83735; 83880; 84100; 84478; 84484; 85025; 85379; 85610-TC; 85651-TC; 85730-TC; 86022; 86140; 86480; 86635; 87040; 87070; 87070-TC; 87081; 87086; 87101; 87205-TC; 87305; 88108; 88305; 93005; 93306; 93970; 93971; 94002; 94003; 94640; 94760; G0378; J0295; J0692; J1030; J1170; J1265; J1450; J1644; J1650; J1720; J1815; J2060; J2250; J2270; J2543; J2704; J3010; J3465; J3475; J3480; J3490; J7030; J7050; J7060; J7608; J7613